=== PATIENT | female | born 1965 | race Caucasian/White ===

== ENCOUNTER 2024-06-01 08:45 | Outpatient (AMB) | payer OTHER, SELFPAY ==
--- OUTSIDE RECORDS SUMMARY | 2024-06-01 09:12 | XMS_ITS | Continuity of Care Document ---
Author Organization [facility] Address [address] [place] [address] [address] [place] [address] Phone Care Team Providers Care Chart Writer Name Role Phone Izaiah MONTGOMERY, FERNANDO, Emre MADISON Unavailable U navailable Allergies, Adverse Reactions, Alerts Substance Reaction Status Criticality No Known Allergies Active No Inform ation Procedures Procedure Date Duplex Scan-extrem Veins; Uni/ CT & MA D Endovenous Laser, 1st Vein- CT & MA Endovenous Rf, 1st Vein- CT & MA 2023 Ultrason Guidan Needle Bx-rad- CT & MA D Inj Sclerosing Solution; Sngl- CT & MA D Offic/outpt E&m Estab 5 Min Trial- Telem edicine CT & MA Offic Cons New/estab Mod-hi 60- CT & MA Duplex Scan-extrem Veins; Uni/ CT & MA A Advance Directives Directive Yes / No Effective Date File Name No Information Encounters Encounter Description Practice Location Reason(s) For Visit Diagnoses Date Provider Providers Copied on Encounter [facility], [address] [place] [address] [address], [place], [id number], [place] tel:[phone] [facility] Encounter for follow-up examination after completed treatment for conditions other than malignant neoplasmPain in left leg Izaiah MONTGOMERY, FERNANDO, GRICELDA Andrea. [address] [facility] [address], [place], [place], [id number] , [place]. tel:[phone] Referring Provider: Emre Bliss MD, RVT, GRICELDA, [address] [place] [address], [facility] [place] [place], [address] . tel:[phone] [facility], [address] [place] [address] Dr Burt [address]Jose [place], [id number], [place] tel:[phone] [facility] [place] [facility] Varicose veins of left lower extremity with other complications 4 Izaiah MONTGOMERY RVT, GRICELDA Andrea. [address] [place] [address], [address], [facility] [place], [id number] , [place]. tel:[phone] [facility], [address] [place] [address] Dr [facility] [address] [place], [id number], [place] tel:[phone] [facility] [place] [facility] Chronic venous hypertension (idiopathic) with inflammation of left lower extremity 4 Izaiah MONTGOMERY RVT, GRICELDA Andrea. [address] [place] [address], [place] [address], [facility] [place], [id number] , [place]. tel:[phone] Referring Provider: Emre Bliss MD, RVT, GRICELDA, [address] [place] [address], [place], [address] . tel:[phone] [facility], [address] [place] [address] Dr Burt [address]Jose [place], [id number], [place] tel:[phone] [facility] [place] [facility] No Information 4 Izaiah MONTGOMERY RVT, GRICELDA Andrea. [address] [place] [address], Suite [facility], [facility] [place] [place], [id number] , [place]. tel:[phone] Offic/outpt E&m Estab 5 Min Trial- Telemedicine CT & [place] [facility], [address] [place] [address] Dr Burt [address]Jose [place], [id number], [place] tel:[phone] [facility] [place] [facility] Chronic venous hypertension (idiopathic) with other complications of left lower extremityCramp and spasm 4 Izaiah MONTGOMERY RVT, RPVI Robert. [facility], [address], [facility], [place], [id number] , [place]. tel:[phone] Offic Cons New/estab Mod-hi 60- CT & [place] [facility], [address] [place] [address] [facility] [address], [place], [id number], [place] tel:[phone] CVR - [facility] Chronic venous hypertension (idiopathic) with other complications of bilateral lower extremity 4 Izaiah MONTGOMERY RVT, RPVI Robert. [address] [facility], [address], [facility] [place], [id number] , [place]. tel:[phone] [facility], [address] [place] [address] [facility] [address], [place], [id number], [place] tel:[phone] CVR - [facility] Chronic venous hypertension (idiopathic) with other complications of left lower extremity 4 Izaiah MONTGOMERY RVT, RPVI Robert. [address] [place] [address], [facility] [place], [id number] , [place]. tel:[phone] Referring Provider: Emre Bliss MD, RVT, RPVI, [address] [place] [address], [place], [address] . tel:[phone] Family History Family Member Type Diagnosis Age At Onset No Information Payers Payer name Insurance type Covered republican ID [facility]() [facility] [id number] Social History Type Description Quantity Date Captured Comments Sex Female Smoking Status No Information Chief Complaint And Reason For Visit No Information Reason For Referral Reason For Referral No Information Plan Of Treatment Date Type Action Status Goal Diet education completed Referral Ordered: Weight management: Referral to physician timeframe: 3 Months (related to Body mass index (BMI) 40.0-44.9, adult) ordered Appointment Ashley Bates BOOKED Appointment Ashley Bates BOOKED History Of Present Illness Encounter Date Complaint History Of Prese nt Illness No Information Functional Status Date Functional Assessmen t No Information Instructions Date Instruction Additional Infor mation Pre and post instruc tions reviewed and provided Related to Chronic venous hypertension (idiopathic) with other complications of left lower extremity Patient education booklet given Related to Chronic venous hypertension (idiopathic) with other complications of left lower extremity Lifestyle education Related to B dinh mass index (BMI) 40.0-44.9, adult Giving Encouragement to exercise Related to Body mass index (BMI) 40.0-44.9, adult Pre and post instruc tions reviewed and provided Related to Chronic venous hypertension (idiopathic) with other complications of bilateral lower extremity Patient education booklet given Related to Chronic venous hypertension (idiopathic) with other complications of bilateral lower extremity Diet education Related to Body mass index (BMI) 40.0-44.9, adult Assessments Type Assessment Date No Information Patient Care Teams Name Effective Dates (start - stop) Status Members No Information
--- NOTE | 2024-06-01 10:21 | A.OFFVIS_ITS ---
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*: Details: Start time: 10.10am, End time: 11.10am ?I spent 55 minutes speaking with the patient on the phone plus an additional 5 minutes reviewing and updating records for a total of 60 minutes HPI Comments Details: Previous weight loss efforts: self diets Wakes up: 7am, Sleeps: 11pm Breakfast: 8am (2 eggs) Lunch: milk (1 cup) 1pm (vegetables and fruits) Dinner: 4pm (pasta, salad, rice) Snacks: 10am (bar), 3pm (fruit) Exercise: none Fluids: Coffee (1 cup/day), tea: none, soda: diet Sprite, juice: none, ETOH: none PFSH Medical History (Updated 06/01/24 @ 10:31 by Wyatt Reynoso MD) DJD (degenerative joint disease) Hyperlipidemia GERD (gastroesophageal reflux disease) Morbid obesity Surgical History (Updated 05/19/24 @ 12:00 by Radha Stoddard CMA) Hx of colonoscopy Hx of bladder endoscopy Hx of hysterectomy Hx of breast reduction, elective Family History (Updated 05/19/24 @ 12:01 by Radha Stoddard CMA) Mother Asthma Father Diabetes Daughter No problems noted. Daughter No problems noted. Daughter Diabetes Son No problems noted. Son No problems noted. Social History (Updated 05/19/24 @ 12:01 by Radha Stoddard CMA) Alcohol intake: never Patient Tobacco Use Status: Never used Tobacco Telehealth Telehealth Telehealth Platform: Telephone Location of provider rendering services: practice address Location of patient: address on file Patient Identification confirmed using: Name, : Yes Telehealth method: voice only Patient verbally consented to treatment: Yes Patient verbally consented to billing insurance company: Yes Patient informed of any privacy concerns related to visit: Yes Minutes spent on Phone/Video with Pt.: 60 Assessment & Plan Assessment & Plan (1) Morbid obesity: Code(s): E66.01 - Morbid (severe) obesity due to excess calories Category: Medical Plan: 1.? Plan for lap sleeve gastrectomy. If diaphragmatic or ventral hernias are present at time of surgery, these will be repaired laparoscopically as well. I emphasized the importance of close follow-up, adherence to instructions and good communication. The surgery does not replace the need to change your lifestlyle which is the cause of the obesity problem. The surgery provides the motivation to try again to change your lifestyle, it reduces the appetite and make the transition to a better lifestyle easier and doubles the amount of weight you would lose compared to doing the lifestyle change without the s urgery. You will need to be on a liquid diet with protein shakes for 2 weeks before surgery to maximize weight loss and boost your nutritional status to recover better from surgery and also for the first two weeks after surgery to let the stomach heal before we introduce other foods. After the first 2 weeks we will introduce protein bars and soft foods like scrambled eggs, cottage cheese and yogurt and after the 6th week will introduce meat, fish and cooked vegetables in small amounts. Over time you should be able to eat everything in small amounts. Side effects like nausea, vomiting, heartburn or abdominal pain are not common in the practice unless you are not following in the practice. This operation requires lifetime commitment to following in our practice and communication with me. You will much less weight and experience side effects if you don?t communicate or not following in the practice. Complications are rare and in our practice is about 1/10 of the national average. However, you can develop bleeding that may require transfusion (hasn?t happened for year in the practice), you may from complications (we did not have any deaths in the practice) and infections. Infections are usually a result of breakdown in communication or not understanding or following directions correctly. They are difficult to treat, they can happen during the first 6 weeks, they may require to be in the hospital for weeks or even months, not being able to eat by mouth and you may have drains and surgeries to try and correct the issue. Other risks and complications include possible conversion to an open procedure, leaks, small bowel obstruction, blood clots, cardiac, or pulmonary complications, as fci complications such as ulcers, insufficient weight loss and vitamin deficiencies. 2. Nutritional counseling. Start with 2 CELEBRATE REBUILD protein (buy at [facility]) shakes (HALF scoop EACH in 8oz low fat unsweetened almond milk each) at 8am-10am and 11am-1pm, 1 protein bar (CELEBRATE protein bars, buy at [facility] [employer] shop) at 2pm-4pm, dinner at 5pm (8 forks of protein and 8 forks of salad/vegetables) AND one more protein bar after dinner at 7pm-9pm. She may have an additional half bar if hungry at 10pm-11pm So you do 2 protein shakes, 2 to 2.5 protein bars and one meal per day. Meal to include lean meat (beef, fish, pork, turkey, chicken), or irish yogurt, or egg whites, or beans with a salad with olive oil and fruits (berries, pears, apples, kiwi). Avoid salt, breads, potatoes, rice, pasta, desserts. 3. Each shake would be drunk slowly, like coffee in a period of 2 hours. 4. Cut each bar in 4 pieces and eat each piece in 30min ?to make each bar last 2 hours. 5. I emphasized the importance of measuring accurately the food portion and measure it when serving the food in plate 6. The meal portions include 8 full-size forks of meat and 8 full-size forks of salad. You always eat the meat portion but you can replace up to 4 forks for salad/vegetables with rice, potatoes or pasta, or a fruit ?if you like. The less you do it the better weight loss will be. 7. One full-size fork is what it can be scooped on the fork without falling aside and not what can be bit with the fork. Use regular forks like those you find in a typical restaurant. 8.? Please buy the body composition scale we discussed and send me weight measu rements as soon as possible and then once a week. Always include your diet and exercise plan. 9. Start walking outside daily, tracking calories with a goal of 300 calories per day, daily. Goal is to burn 2000 calories per week on exercise, which means either 300 calories daily, or 400 calories 5 days per week, or 500 calories 4 days per week, or 650 calories 3 days per week. 10. The best choice would be to purchase a stationary bike at home that can track calories. Let me know if you do so I can give you an exercise plan. 11. Goal is to lose at least 1.5-2lbs per week 12. Goal to lose 10% of your weight before surgery, which is about 21lbs. Ultimate weight goal: 186lbs before surgery 13. Please follow the diet plan exactly without any change. If you don't like something about the plan or you feel hungry you need to communicate with me so I can help you revise the plan. You should not change the plan yourself. 14. To be scheduled for EGD on 06/11/2024 due to the history of GERD. The possibility of biopsies was discussed. Patient needs to avoid use of NSAIDs and aspirin for 1 week prior to EGD. You must be on liquids only the day before your endoscopy. Risks of perforation and bleeding was discussed with the patient. This will be an outpatient procedure with IV sedation.
== END 2024-06-01 11:20 | disposition home or self-care (01) ==
LOC: HO.HBS 08:45
PROVIDERS: Visit Provider Surgery
DX: E66.813 Obesity, class 3 (principal); Z68.41 Body mass index [BMI] 40.0-44.9, adult
CPT/HCPCS: 98011

== ENCOUNTER 2024-06-03 11:20 | Outpatient (AMB) | payer OTHER, SELFPAY ==
--- NOTE | 2024-06-03 11:00 | A.OFFWM_ITS ---
Intake Intake Visit Reasons: TV Intake Allergies adhesive tape [ADHESIVE TAPE] Allergy (Intermediate, Verified 06/01/24 10:22) SKIN BLISTERS Pt states no food/medication a Allergy (Mild, Uncoded 06/01/24 10:22) rash PFSH Medical History (Updated 06/01/24 @ 10:31 by Wyatt Reynoso MD) DJD (degenerative joint disease) Hyperlipidemia GERD (gastroesophageal reflux disease) Morbid obesity Surgical History (Updated 05/19/24 @ 12:00 by Radha Stoddard CMA) Hx of colonoscopy Hx of bladder endoscopy Hx of hysterectomy Hx of breast reduction, elective Family History (Updated 05/19/24 @ 12:01 by Radha Stoddard CMA) Mother Asthma Father Diabetes Daughter No problems noted. Daughter No problems noted. Daughter Diabetes Son No problems noted. Son No problems noted. Social History (Updated 05/19/24 @ 12:01 by Radha Stoddard CMA) Alcohol intake: never Patient Tobacco Use Status: Never used Tobacco Behavioral Health Assessment Weight Management Therapy Therapy Notes Details PT is a 58 years old Female, who presents for inital visit to complete psychological assessment as part of surgical weight loss program. PT reports she told her PCP about her interest in weight loss surgery due to how her weight is impacting her health specially her back. She hopes that by losing weight she will feel better in general. Presenting Concerns Referral Source P-PROVIDER. PT has initial visit with Dr Burrell on Saturday06/01/2024 Reason for referral Completion of behavioral health assessment as part of process for weight-loss surgery. Precipitating Event Obesity. Living Situation Current Living Situation Rent At risk of losing current housing? No Satisfied with current living situation? Yes Comments PT lives with her 32 y/o adult son. Food/Weight/Diet Expectations of change The initial goal is to lose 10% of your weight before surgery, about 21 lbs. Ultimate weight goal: 186lbs before surgery PT initial weight as of 05/19/2024: 207 Lbs. She had an initial visit with Dr Burrell on 06/01/2024 and was 207 Lbs that day too. She bought her scale already and was given a meal plan, however she has not started yet as she gets paid on Saturday. Instructions given by provider: meal plan: 2 protein shakes, 2 to 2.5 protein bars, and one meal per day. Exercise plan: Will get a treadmill. not started yet. History/Relationship with food Example of meals before starting the program: Breakfast: Lunch: Dinner: Snacks: Drinks/Liquids: History/Relationship with weight In the last 10 years, the patient's Lowest weight was and highest Social History Family history and relationship PT is 11 years ago. She has 5 adult children and 8 grandkids. Parents are . She has 8 siblings. Parental/Familial contract lead obligations None Developmental history and status None reported Currently WNL. Social support Children, the son who lives with her is starting the process with her, her oldest son had surgery with Dr. Burrell. Her sister is very close and supportive. Community support PCP Confucianist/Spirituality Mu-Ism, attends sikhism 1-3 times a week. Cultural/Ethnic information PT is from [place]. She has been in [place] 11 years ago. PT is [place] Islander-speaking only. Legal Involvement and History Current or historical involvement with the legal system? None reported. Education Highest grade completed HS. Certificate as behavioral technician. Preferred learning style Learn by doing and Visual Currently enrolled in educational program? No Interested in further educational program? 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 ) Wants help to find employment? No Meaningful activities Crafts, sewing, listen to music, elzbieta-related videos or music. Financial Situation Describe current financial situation Occasional struggle (Lost job in March. Looking for a new one) Financial assistance? Food [place] and Other (Insurance. ) Service Service? No Mental Health and Addiction Treatment0 Current/Past substance abuse? No Comments Alcohol: None Cigarettes/Tobacco: None Cannabis/Edibles: None Current/Past addictive behavior concerns? No Psychiatric history PT reports she started to counseling in 2013 after her divorce due to depression, she was for over 30 years and they have been together since age 11. So she had a hard time adjusting to the changes after separation. She continues attending counseling every month for support at [facility] in [place]. Denies any psychiatric treatment for medication management. Denies ever being in crisis or inpatient for mental health. There is no history and/or current concern about SI/SA and self-harm or other harm. Medical and Physical Health Summary Additional Medical History not covered in history None additiona Sexual History concerns None reported Physical exam in the last year? Yes Pain Screening Current pain? Yes Pain in the last few months? Yes Comments Back pain. Daily pain mostly manageable. Medications Is the patient compliant with medications? Yes Does the patient have Rosenthal Guardian in place? Not applicable Does the patient use complimentary health approaches? No Trauma/Abuse History History of trauma? No Assessment & Plan Assessment & Plan (1) Adjustment disorder with depressed mood in remission: Code(s): F43.21 - Adjustment disorder with depressed mood Plan PT will return in 2-3 weeks to continue assessment. New PT pack will be reviewed at next visit as it has not been scanned yet. Next edie: 06/18/2024 at 9am, Phone visit. Telehealth [facility]health [facility] Location of provider rendering services: other Location of patient: address on file Patient Identification confirmed using: Name, : Yes Telehealth method: voice only Patient verbally consented to treatment: Yes Patient verbally consented to billing insurance company: Yes Patient informed of any privacy concerns related to visit: Yes Minutes spent on Phone/Video with Pt.: 55 Coding Level of Care Code New Pt Tele Psy Diag Zaida ([id number]) Patient Type New Diagnoses Adjustment disorder with depressed mood in remission F43.21 Time Spent (min) 55
--- OUTSIDE RECORDS SUMMARY | 2024-06-03 11:44 | XMS_ITS | Continuity of Care Document ---
Author Organization [facility] Address [address] [place] [address] [address] [place] [address] Phone Care Team Providers Care Political Research Scientist Name Role Phone Izaiah MONTGOMERY, FERNANDO, Emre [...] Providers Copied on Encounter [facility], [address] [place] [address] [address], [place], [id number], [place] tel:[phone] [facility] Encounter for follow-up examination after completed treatment for conditions other than malignant neoplasmPain in left leg Izaiah MONTGOMERY, FERNANDO, GRICELDA Andrea. [address] [facility], [place], [place], [id number] , [place]. tel:[phone] Referring Provider: Emre Bliss MD, RVT, GRICELDA, [address] [place] [address], [facility] [place], [address] . tel:[phone] [facility], [address] [place] [address] Dr Burt 1000Suite 1000Jose [place], [id number], [place] tel:[phone] CVR - [place] Varicose veins of left lower extremity with other complications 4 Izaiah MONTGOMERY RVT, GRICELDA Andrea. [address] [place] [address], [address], [facility] [place], [id number] , [place]. tel:[phone] [facility], [address] [place] [address] Dr Burt [facility] 1000Jose [place], [id number], [place] tel:[phone] [place] Chronic venous hypertension (idiopathic) with inflammation of left lower extremity 4 Izaiah MONTGOMERY RVT, GRICELDA Andrea. [address] [place] [address], [place] [address], [facility] [place], [id number] , [place]. tel:[phone] Referring Provider: Emre Bliss MD, RVT, GRICELDA, [address] [place] [address], [facility] [place], [address] . tel:[phone] [facility], [address] [place] [address] Dr Burt 1000Suite 1000Jose [place], [id number], [place] tel:[phone] [place] No Information 4 Izaiah MONTGOMERY RVT, GRICELDA Andrea. [address] [place] [address], Suite [facility], [facility] [place], [id number] , [place]. tel:[phone] Offic/outpt E&m Estab 5 Min Trial- Telemedicine CT & [place] [facility], [address] [place] [address] Dr Burt 1000Suite 1000Jose [place], [id number], [place] tel:[phone] [place] Chronic venous hypertension (idiopathic) with other complications of left lower extremityCramp and spasm 4 Izaiah MONTGOMERY RVT, RPVI Robert. [facility], [address], [facility], [place], [id number] , [place]. tel:[phone] Offic Cons New/estab Mod-hi 60- CT & [place] [facility], [address] [place] [address] [address], [place], [id number], [place] tel:[phone] CVR - [facility] Chronic venous hypertension (idiopathic) with other complications of bilateral lower extremity 4 Izaiah MONTGOMERY RVT, RPVI Robert. [address] [facility], [address], [facility] [place], [id number] , [place]. tel:[phone] [facility], [address] [place] [address] [address], [place], [id number], [place] tel:[phone] CVR - [facility] Chronic venous hypertension (idiopathic) with other complications of left lower extremity 4 Izaiah MONTGOMERY RVT, RPVI Robert. [address] [place] [address], [facility] [place], [place], [id number] , [place]. tel:[phone] Referring Provider: Emre Bliss MD, RVT, RPVI, [address] [place] [address], [place], [address] . tel:[phone] Family History Family Member Type Diagnosis Age At Onset No Information Payers Payer name Insurance type Covered republican ID [facility]() [facility] [id number] Social History Type Description Quantity Date Captured [...] No Information Instructions Date Instruction Additional Infor cliff Patient education booklet given Related to Chronic venous hypertension (idiopathic) with other complications of left lower extremity Pre and post instruc tions reviewed and provided Related to Chronic venous hypertension (idiopathic) with other complications of left lower extremity Diet education Related to Body mass index (BMI) 40.0-44.9, adult Patient education booklet given Related to Chronic venous hypertension (idiopathic) with other complications of bilateral lower extremity Pre and post instruc tions reviewed and provided Related to Chronic venous hypertension (idiopathic) with other complications of bilateral lower extremity Giving Encouragement to exercise Related to Body mass index (BMI) 40.0-44.9, adult Lifestyle education Related to B dinh mass index (BMI) 40.0-44.9, adult Assessments Type Assessment Date No Information Patient Care Teams Name Effective Dates (start - stop) Status Members No Information
== END 2024-06-03 12:03 | disposition home or self-care (01) ==
LOC: HO.HBST 11:20
PROVIDERS: PCP Student in an Organized Health Care Education/Training Program; Visit Provider Counselor Mental Health
DX: F43.21 Adjustment disorder with depressed mood (principal)
CPT/HCPCS: 90791

== ENCOUNTER → 2024-06-03 11:20 | Outpatient (BNVA) | payer OTHER, SELFPAY | PROVIDERS: PCP Student in an Organized Health Care Education/Training Program; Visit Provider Counselor Mental Health ==

== ENCOUNTER → 2024-06-15 10:13 | Outpatient (BNV) | payer OTHER, SELFPAY | PROVIDERS: PCP Student in an Organized Health Care Education/Training Program; Visit Provider Internal Medicine Cardiovascular Disease | DX: R94.31 Abnormal electrocardiogram [ECG] [EKG] (principal); E66.01 Morbid (severe) obesity due to excess calories | CPT/HCPCS: 93010 ==

== ENCOUNTER → 2024-06-15 10:43 | Outpatient (BNV) | payer OTHER, SELFPAY | PROVIDERS: PCP Student in an Organized Health Care Education/Training Program; Visit Provider Radiology Diagnostic Radiology | DX: E66.01 Morbid (severe) obesity due to excess calories (principal) | CPT/HCPCS: 71046 ==

== ENCOUNTER 2024-06-23 10:57 | Day surgery (SDC) | payer OTHER, SELFPAY ==
--- OUTSIDE RECORDS SUMMARY | 2024-06-04 09:21 | XMS_ITS | Continuity of Care Document ---
Author Organization [facility] Address [address] [place] [address] [address] [place] [address] Phone Care Team Providers Care Product Technology Scientist Name Role Phone Izaiah MONTGOMERY, FERNANDO, [...] Providers Copied on Encounter [facility], [address] [place] [address] [address], [place], [id number], [place] tel:[phone] [facility] Encounter for follow-up examination after completed treatment for conditions other than malignant neoplasmPain in left leg Izaiah MONTGOMERY, FERNANDO, GRICELDA Andrea. [address] [facility], [place], [place], [id number] , [place]. tel:[phone] Referring Provider: Emre Bliss MD, RVT, GRICELDA, [address] [place] [address], [facility] [place], [address] . 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 [address] [place] [address], [address], [facility] [place], [id number] , [place]. tel:[phone] [facility], [address] [place] [address] Dr Burt 1000[facility] 1000Jose [place], [id number], [place] tel:[phone] [place] Chronic venous hypertension (idiopathic) with inflammation of left lower extremity 4 Izaiah MONTGOMERY RVT, GRICELDA Andrea. [address] [place] [address], [place] [address], [facility] [place], [id number] , [place]. tel:[phone] Referring Provider: Emre Bliss MD, RVT, GRICELDA, [address] [place] [address], [facility] [place], [address] . tel:[phone] [facility], [address] [place] [address] Dr Burt 1000Suite 1000Jose [place], [id number], [place] tel:[phone] [place] No Information 4 Izaiah MONTGOMERY RVT, GRICELDA Andrea. [address] [place] [address], Suite [facility], [facility] [place], [id number] , [place]. tel:[phone] Offic/outpt E&m Estab 5 Min Trial- Telemedicine CT & [place] [facility] [facility], [address] [place] [address] Dr Burt 1000Suite 1000Jose [place], [id number], [place] tel:[phone] [place] Chronic venous hypertension (idiopathic) with other complications of left lower extremityCramp and spasm 4 Izaiah MONTGOMERY RVT, RPVI Robert. [facility], [address], [facility], [place], [id number] , [place]. tel:[phone] Offic Cons New/estab Mod-hi 60- CT & [place] [facility], [address] [place] [address] [facility] 1000[address], [place], [id number], [place] tel:[phone] CVR - [facility] Chronic venous hypertension (idiopathic) with other complications of bilateral lower extremity 4 Izaiah MONTGOMERY RVT, RPVI Robert. [address] [facility], [address], [facility] , [place], [id number] , [place]. tel:[phone] [facility], [address] [place] [address] [facility] 1000[address], [place], [id number], [place] tel:[phone] CVR - [facility] Chronic venous hypertension (idiopathic) with other complications of left lower extremity 4 Izaiah MONTGOMERY RVT, RPVI Robert. [address] [place] [address], [facility] [place], [id number] , [place]. tel:[phone] Referring Provider: Emre Bliss MD, RVT, RPVI, [address] [place] [address], [place], [address] . tel:[phone] Family History Family Member Type Diagnosis Age At Onset No Information Payers Payer name Insurance type Covered democrat ID [facility]() [facility] [id number] Social History Type Description Quantity Date Captured [...]
--- NOTE | 2024-06-19 14:13 | P.CONAN_ITS ---
Documented by User: Yary Johnson NP 06/19/24 14:13 HPI - Anesthesia Eval Consult details Narrative: 59yo F for Upper Endoscopy PMFSH Active Problems Active Problems: All Active Problems Abnormal EKG (Acute) Vitamin D deficiency (Acute) DJD (degenerative joint disease) (Acute) Hyperlipidemia (Acute) GERD (gastroesophageal reflux disease) (Acute) Morbid obesity (Acute) Past Medical History Medical History DJD (degenerative joint disease) Hyperlipidemia GERD (gastroesophageal reflux disease) Morbid obesity Family History Family History Mother Asthma Father Diabetes Daughter No problems noted. Daughter No problems noted. Daughter Diabetes Son No problems noted. Son No problems noted. Surgical History Surgical History Hx of colonoscopy Hx of bladder endoscopy Hx of hysterectomy Hx of breast reduction, elective Social History Social History Are you a primary family day care worker to a significant other at home: No Do you presently have visiting nurse or other home services: No Alcohol intake: never Patient Tobacco Use Status: Never used Tobacco Use of substances other than those prescribed or required for medical reasons: No Have you been hit, kicked, punched, or otherwise hurt by someone within the past year? If so, by whom?: No Are you DNR?: No Advance Directives: No Advance Directives Information Provided: Yes Advance Directives on File: No Recently lost weight without trying: No Nutrition Risks: No Nutritional Risk Meds Allergies Allergy/AdvReac Type Severity Reaction Status Date / Time adhesive tape [ADHESIVE TAPE] Allergy Intermediate SKIN Verified 06/23/24 13:15 BLISTERS Pt states no food/medication Allergy Mild rash Uncoded 06/01/24 10:22 a Home Medications ?Medication ?Instructions ?Recorded ?Confirmed ?Last Taken ?Type atorvastatin 40 mg tablet 40 mg PO DAILY 05/28/24 06/23/24 Unknown History famotidine 20 mg tablet 20 mg PO DAILY 05/28/24 06/23/24 Unknown History meloxicam 15 mg tablet 15 mg PO DAILY 05/28/24 06/23/24 Unknown History multivitamin 1 tab PO DAILY 05/28/24 06/23/24 Unknown History Assessment and Plan Assessment Anesthesia Assessment: Chart Reviewed Documented by User: Gabby Akins MD 06/23/24 14:03 PMFSH Past Medical History Medical History DJD (degenerative joint disease) Hyperlipidemia GERD (gastroesophageal reflux disease) Morbid obesity Family History Family History Mother Asthma Father Diabetes Daughter No problems noted. Daughter No problems noted. Daughter Diabetes Son No problems noted. Son No problems noted. Surgical History Surgical History Hx of colonoscopy Hx of bladder endoscopy Hx of hysterectomy Hx of breast reduction, elective History of Problems with Anesthesia: No Social History Social History Are you a primary family day care worker to a significant other at home: No Do you presently have visiting nurse or other home services: No Alcohol intake: never Patient Tobacco Use Status: Never used Tobacco Use of substances other than those prescribed or required for medical reasons: No Have you been hit, kicked, punched, or otherwise hurt by someone within the past year? If so, by whom?: No Are you DNR?: No Advance Directives: No Advance Directives Information Provided: Yes Advance Directives on File: No Recently lost weight without trying: No Nutrition Risks: No Nutritional Risk Meds Allergies Allergy/AdvReac Type Severity Reaction Status Date / Time adhesive tape [ADHESIVE TAPE] Allergy Intermediate SKIN Verified 06/23/24 13:15 BLISTERS Pt states no food/medication Allergy Mild rash Uncoded 06/01/24 10:22 a Home Medications ?Medication ?Instructions ?Recorded ?Confirmed ?Last Taken ?Type atorvastatin 40 mg tablet 40 mg PO DAILY 05/28/24 06/23/24 Unknown History famotidine 20 mg tablet 20 mg PO DAILY 05/28/24 06/23/24 Unknown History meloxicam 15 mg tablet 15 mg PO DAILY 05/28/24 06/23/24 Unknown History multivitamin 1 tab PO DAILY 05/28/24 06/23/24 Unknown History Exam Airway Mallampati Class: III TM Dist: >3cm Neck ROM: Full Loose/Missing/Broken Teeth: No Heart: RRR Lungs: CTA Assessment and Plan Assessment Anesthesia Assessment: Anesthesia Plan Discussed Final Anesthetic Review History of Problems with Anesthesia: No NPO: Yes ASA Class: III and Emergency Final Preanesthetic Review: Meds/Allgs Chart Reviewed, Consent Obtained/Reviewed and Anes Risks/Benef Reviewed Patient Risk: Intermediate Procedure Risk: Intermediate Anesthetic Plan Anesthetic Plan: MAC: Disposition: Standard PACU
--- OUTSIDE RECORDS SUMMARY | 2024-06-23 12:12 | XMS_ITS | Continuity of Care Document ---
Author Organization [facility] Address [address] [place] [address] [address] [place] [address] Phone Care Team Providers Care Setter Automatic Spinning Lathe Name Role Phone Izaiah MONTGOMERY, FERNANDO, Emre [...] Providers Copied on Encounter [facility], [address] [place] [address] [address], [place], [id number], [place] tel:[phone] [facility] Encounter for follow-up examination after completed treatment for conditions other than malignant neoplasmPain in left leg Izaiah MONTGOMERY, FERNANDO, GRICELDA Andrea. [address] [facility] [address], [place], [place], [id number] , [place]. tel:[phone] Referring Provider: Emre Bliss MD, RVT, GRICELDA, [address] [place] [address], [facility] [place], [address] . tel:[phone] [place] [facility], [address] [place] [address] Dr Burt 1000Suite 1000Jose [place], [id number], [place] tel:[phone] CV[place] - [place] Varicose veins of left lower extremity with other complications 4 Izaiah MONTGOMERY RVT, GRICELDA Andrea. [address] [place] [address], [address], [facility] [place], [id number] , [place]. tel:[phone] [facility], [address] [place] [address] Dr Burt 1000[facility] 1000Jose [place], [id number], [place] tel:[phone] CVR - [place] Chronic venous hypertension (idiopathic) with inflammation of left lower extremity 4 Izaiah MONTGOMERY RVT, GRICELDA Andrea. [address] [place] [address], [place] [address], [facility] [place], [id number] , [place]. tel:[phone] Referring Provider: Emre Bliss MD, RVT, GRICELDA, [address] [place] [address], [facility] [place], [address] . tel:[phone] [facility], [address] [place] [address] Dr Burt 1000Suite 1000Jose [place], [id number], [place] tel:[phone] CVR - [place] No Information 4 Izaiah MONTGOMERY RVT, GRICELDA Andrea. [address] [place] [address], Suite [facility], [facility] [place], [id number] , [place]. tel:[phone] Offic/outpt E&m Estab 5 Min Trial- Telemedicine CT & [place] [facility] [facility], [address] [place] [address] Dr Burt 1000Suite 1000Jose [place], [id number], [place] tel:[phone] CV[place] - [place] Chronic venous hypertension (idiopathic) with other complications of left lower extremityCramp and spasm 4 Izaiah MONTGOMERY RVT, RPVI Robert. [address] [place] [address], [place], [place], [id number] , [place]. tel:[phone] Offic Cons New/estab Mod-hi 60- CT & [place] [facility], [address] [place] [address] Dr Burt 1000[address] 1000, [place], [id number], [place] tel:[phone] CVR - [facility] Chronic venous hypertension (idiopathic) with other complications of bilateral lower extremity 4 Izaiah MONTGOMERY RVT, RPVI Robert. [address] [place] [address], [place], [place], [id number] , [place]. tel:[phone] [facility] [facility], [address] [place] [address] [facility] [address] 1000, [place], [id number], [place] tel:[phone] CVR - [facility] Chronic venous hypertension (idiopathic) with other complications of left lower extremity 4 Izaiah MONTGOMERY RVT, RPVI Robert. [address] [place] [address], [place], [place], [id number] , [place]. tel:[phone] Referring Provider: Emre Bliss MD, RVT, RPVI, [address] [place] [address], [place], [address] . tel:[phone] Family History Family Member Type Diagnosis Age At Onset No Information Payers Payer name Insurance type Covered alliance party ID Authoriza tion(s) No Information Social History Type Description Quantity Date Captured Comments Sex Female Smoking Status No Information Chief Complaint And Reason For Visit No Information Reason For Referral Reason For Referral No Information Plan Of Treatment Date Type Action Status Goal Diet education completed Referral Ordered: Weight management: Referral to physician timeframe: 3 Months (related to Body mass index (BMI) 40.0-44.9, adult) ordered History Of Present Illness Encounter Date Complaint History Of Prese nt Illness No Information Functional Status Date Functional Assessmen t No Information Instructions Date Instruction Additional Infor mation Patient education booklet given Related to Chronic [...]
[2024-06-23 13:32] VITALS: BP 136/71; PULSE 73; RESP 14; TEMP 36.4; O2SAT 98; BMI 39.4; BMI 39.5
[2024-06-23] MEDS: Lactated Ringers 1,000 ML 100 ML IVCONT (13:37)
--- NOTE | 2024-06-23 14:21 | MHC.SHP ---
Pre-Procedural Eval Section A - 24 Hr Update-Section A only Date of Service: 06/23/24 The patient is an INPATIENT: No The patient has been examined within 24 hours of the surgical procedure. The History & Physical has been completed within 30 days and I have reviewed it.: Yes Section B - Complete if H&P > 30 days Chief Complaint: Morbid (severe) obesity due to excess calories Details of Present Illness: GERD Relevant Family History (Specify if Yes): No Relevant Social History: None Present Medications: None Medical History: No relevant PMH History of Previous Operations: No relevant previous surgery Allergies: Allergies Allergy/AdvReac Type Severity Reaction Status Date / Time adhesive tape [ADHESIVE TAPE] Allergy Intermediate SKIN Verified 06/23/24 13:15 BLISTERS Pt states no food/medication Allergy Mild rash Uncoded 06/01/24 10:22 a Review of Systems Sugical H&P ROS: Negative: Constitution, Cardiovascular, Respiratory, Neurological, Psychiatric, Hem-Onc, Allergic/Immunologic, Gastrointestinal, Genitourinary, Musculoskeletal, Integumentary, Endocrine and Eyes/Ears/Nose/Throat Exam Surgical H&P Exam: Normal: HEENT, Normal: Heart, Normal: Lungs, Normal: Extremities, Normal: Abdomen, Normal: Skin and Normal: Neurological Plan Diagnosis/Plan: Unchanged (EGD to assess etiology of GERD. Risks of bleeding and perforation were discussed with the patient and she is in agreement with the plan.) I have reviewed the history and physical and performed a pertinent physical examination on my patient. No changes have occurred unless specified. Time Spent With Patient Time: Total time managing care of this patient today ____ minutes.
--- NOTE | 2024-06-23 14:24 | P.BOP_ITS ---
Brief Operative Note Date of Service: 06/23/24 Pre-op diagnosis: GERD Post-op diagnosis: same Procedure: PROCEDURE DATE: 06/23/2024 PREOPERATIVE DIAGNOSIS: GERD POSTOPERATIVE DIAGNOSIS: ?Same as above. 1) normal endoscopy PROCEDURE: Muzbuthh-nnvgul-drfhdlgaaxxk with biopsies Surgeon: Carlos Reynoso M.D.. Ph.D. Associate Professor Of Radiology: None ? Anesthesia: IV sedation Estimated blood loss: ?Minimal FINDINGS AND PROCEDURE: ? OPERATIVE INDICATIONS: ?The patient is a 59 year old female known to me who is interested in bariatric surgery. The patient has GERD. Based on this information I recommended an upper endoscopy to evaluate the patient's symptoms. Risks and complications of the surgery were discussed with the patient in advance particularly the possibility of perforation or bleeding that may require surgica l intervention. The patient understood the risks and was in agreement with the plan. ? PROCEDURE: After informed consent was obtained by the patient, the patient was ?transferred to the Operating Room and was placed in the supine position.? After successful induction of IV sedation, a mouth block was inserted and the patient was placed in the left lateral decubitus position. An upper endoscopy was performed next, the oropharynx and esophagus appeared within the normal limits. There was no hiatal hernia. The z-line was smooth. Two biopsies were obtained from the distal esophagus 2-3 cm proximal to the GE junction and two additional biopsies from the GE junction. The stomach was entered and it appeared to be of normal size. There was no gastritis. There was no stricture or ulcer. A biopsy was obtained from the gastric fundus and antrum. No significant bleeding was noted from any of the biopsy sites. Retroflexion of the scope confirmed a normal GE junction anatomy. The scope was then advanced into the duodenum which appeared to be normal as well. At that point the duodenum ?and the stomach were decompressed and the scope was withdrawn from the patient's mouth. The patient extubated and was transferred in stable condition to the Recovery Room for further care. I was present and performed all steps of the procedure. There were no residents to assist with this case. Ken Reynoso M.D., Ph.D. Surgeon: Wyatt Reynoso MD Anesthesia: MAC Was an Associate Professor Of Radiology used for this Procedure?: No Estimated blood loss (mL): 0 IV fluids (mL): 400 Urine output (mL): 0 (No Villeda to record output) Pathology: other (1) antrum x1, 2) fundus x1, 3) GE junction x2, 4) distal esophagus x2) Condition: stable Disposition: PACU
[2024-06-23 14:44] VITALS: BP 111/56; PULSE 77; RESP 16; TEMP 36.8; O2SAT 100
[2024-06-23 14:59] VITALS: BP 126/69; PULSE 82; RESP 18; TEMP 36.2; O2SAT 94
== END 2024-06-23 15:25 | disposition home or self-care (01) ==
PROVIDERS: PCP Student in an Organized Health Care Education/Training Program; Visit Provider Surgery
PROC: 0DJ08ZZ Inspection of Upper Intestinal Tract, Via Natural or Artificial Opening Endoscopic (ICD-10-PCS; CPT 43235; principal; 2024-06-23 14:20)
DX: K21.9 Gastro-esophageal reflux disease without esophagitis (principal); E66.01 Morbid (severe) obesity due to excess calories; Z68.41 Body mass index [BMI] 40.0-44.9, adult; E78.5 Hyperlipidemia, unspecified; M19.90 Unspecified osteoarthritis, unspecified site; Z79.899 Other long term (current) drug therapy; L23.1 Allergic contact dermatitis due to adhesives; Z98.890 Other specified postprocedural states
CPT/HCPCS: 43239; 88305; 88313; 88342; J2003; J2704

== ENCOUNTER → 2024-06-23 10:57 | Outpatient (BNV) | payer OTHER, SELFPAY | PROVIDERS: PCP Student in an Organized Health Care Education/Training Program; Visit Provider Surgery | DX: K21.9 Gastro-esophageal reflux disease without esophagitis (principal) | CPT/HCPCS: 43239 ==

== ENCOUNTER → 2024-06-24 10:12 | Outpatient (AMB) | payer OTHER, SELFPAY ==
--- NOTE | 2024-06-24 10:00 | MHC.WMTHER ---
Intake Intake Visit Reasons: VIDEO BH Intake Part 2 Allergies adhesive tape [ADHESIVE TAPE] Allergy (Intermediate, Verified 06/23/24 13:15) SKIN BLISTERS Pt states no food/medication a Allergy (Mild, Uncoded 06/01/24 10:22) rash PFSH Medical History DJD (degenerative joint disease) Hyperlipidemia GERD (gastroesophageal reflux disease) Morbid obesity Surgical History Hx of colonoscopy Hx of bladder endoscopy Hx of hysterectomy Hx of breast reduction, elective Family History Mother Asthma Father Diabetes Daughter No problems noted. Daughter No problems noted. Daughter Diabetes Son No problems noted. Son No problems noted. Social History Are you a primary healthcare interpreter to a significant other at home: No Do you presently have visiting nurse or other home services: No Alcohol intake: never Patient Tobacco Use Status: Never used Tobacco Behavioral Health Assessment Weight Management Therapy Therapy Notes Details The patient is a 58-year-old female presenting for an initial Behavioral Health visit to complete a psychological assessment as part of a surgical weight loss program. She informed her Primary Care Physician (PCP) about her interest in weight loss surgery due to the impact of her weight on her health, particularly her back. She hopes that losing weight will generally improve her well-being. She attends monthly counseling sessions, initially sought for support following her divorce, and is now stable, attending for maintenance. She is not on any psychiatric medication, and her PHQ-9 scores indicate no concerns regarding depressive symptoms. The patient denies any history of mental health hospitalization or crises, recent or past safety concerns around suicidal ideation (SI) or suicide attempts (SA), self-harm, or harm to others. There is also no history of substance use. She reported some rare instances of stress eating, but her BES scores suggest a low risk for binge eating behavior. The mental status exam is within normal limits, indicating no impairment in functioning. At this time, the patient is cleared from the behavioral health standpoint and will be seen 2-4 weeks post-operatively (PO) for continued support. Presenting Concerns Referral Source WMP-provider. PT had an initial visit with Dr Burrell on Saturday06/01/2024. Initially refered to this program by her PCP. Reason for referral Completion of behavioral health assessment as part of process for weight-loss surgery. Precipitating Event Obesity. Living Situation Current Living Situation Rent At risk of losing current housing? No Satisfied with current living situation? Yes Comments PT lives with her 32 y/o adult son. Food/Weight/Diet Expectations of change The initial goal is to lose 10% of your weight before surgery, about 21 lbs. Ultimate weight goal: 186lbs before surgery PT initial weight as of 05/19/2024: 207 Lbs. She had an initial visit with Dr Burrell on 06/01/2024 and was 207 Lbs that day too. Most recent weight: 06/24/2024: 202 Lbs. Sending weekly measures on Mondays. -Instructions given by provider: meal plan: 2 protein shakes, 2 to 2.5 protein bars, and one daily meal (Dinner @4pm). Exercise plan: treadmill 3-4 days at week for 30 minutes. History/Relationship with food PT reports her issues are related to not having steady meals and then eating bigger portions by the end of the day. Also, she tends to overeat when she's very stressed, however, this doesn't happen often. However, PT denies the use of food as a reward or to uplift her mood. Family activities are mostly focused on food. Example of meals before starting the program: Breakfast: skip most days and Will have coffee only or 1-3 times a week, 1 egg with bread. Lunch: skip most of the time. Mainly leftovers or something quick like soup with rice. Dinner: boiled verdura, like plantains or malanga, with a salad and any type of fried meat. Snacks: juice, soda, cookies. Drinks/Liquids: 2 cans of soda, 1-2 glasses of apple juice, 2-3 bottles of water. History/Relationship with weight PT reports she was at a healthy weight in childhood. She started with major weight gain after marrying and having children. Before getting and having children around 17 years old she has 115Lbs. In the last 10 years, the patient's Lowest weight was 195 lbs and highest 211 lbs. History/Relationship with dieting Different diets, OTC pills, detox teas, and coffee. Tried each methods for a maximum 3 months, the most she lose was 3Lbs. Binge Eating Do you frequently eat large amounts of food in short periods of time, not feeling physically hungry? No Do you feel out of control when you eat a large amount of food in a short period of time? No Do you eat large amounts of food rapidly and typically alone? No Night Eating Do you wake up at least once during the night to eat? No If you wake up in the night, do you find that it is necessary to eat something in order to fall back asleep? No Do you have little or no appetite in the morning and feel very hungry in the evening, often overeating between dinner and when you go to bed? No Social History Family history and relationship PT is 11 years ago. She has 5 adult children and 8 grandkids. Parents are . She has 8 siblings. Parental/Familial steam power plant operator obligations None Developmental history and status None reported Currently WNL. Social support Children, the son who lives with her is starting the process with her, her oldest son had surgery with Dr. Burrell. Her sister is very close and supportive. Community support PCP Bahai/Spirituality Zoroastrian, attends pentecostal 1-3 times a week. Cultural/Ethnic information PT is from [place]. She has been in [place] 11 years ago. PT is Frisian-speaking only. Legal Involvement and History Current or historical involvement with the legal system? None reported. Education Highest grade completed HS. Certificate as windows laptop technician. Preferred learning style Learn by doing and Visual Currently enrolled in educational program? No Interested in further educational program? 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 ) Wants help to find employment? No Meaningful activities Crafts, sewing, listen to music, elzbieta-related videos or music. Financial Situation Describe current financial situation Occasional struggle (Lost job in March. Looking for a new one) Financial assistance? Food [place] and Other (Insurance. ) Service Service? No Mental Health and Addiction Treatment Current/Past substance abuse? No Comments Alcohol: None Cigarettes/Tobacco: None Cannabis/Edibles: None Current/Past addictive behavior concerns? No Psychiatric history PT reports she started to counseling in 2013 after her divorce due to depression, she was for over 30 years and they have been together since age 11. So she had a hard time adjusting to the changes after separation. She continues attending counseling every month for support at [facility] in [place]. Denies any psychiatric treatment for medication management. Denies ever being in crisis or inpatient for mental health. There is no history and/or current concern about SI/SA and self-harm or other harm. Medical and Physical Health Summary Additional Medical History not covered in history None additiona Sexual History concerns None reported Physical exam in the last year? Yes Pain Screening Current pain? Yes Pain in the last few months? Yes Comments Back pain. Daily pain mostly manageable. Medications Is the patient compliant with medications? Yes Does the patient have Rosenthal Guardian in place? Not applicable Does the patient use complimentary health approaches? No Trauma/Abuse History History of trauma? No Questionnaires PHQ-9 Over the last 2 weeks, how often have you been bothered by any of the following problems? 1. Little interest or pleasure in doing things: several days 2. Feeling down, depressed, or hopeless: not at all 3. Trouble falling or staying asleep, or sleeping too much: not at all 4. Feeling tired or having little energy: several days 5. Poor appetite or overeating: not at all 6. Feeling bad about yourself - or that you are a failure or have let yourself or your family down: not at all 7. Trouble concentrating on things, such as reading the newspaper or watching television: not at all 8. Moving or speaking so slowly that other people could have noticed. Or the opposite - being so fidgety or restless that you have been moving around a lot more than usual: not at all 9. Thoughts that you would be better off or of hurting yourself in some way: not at all Total score: 2 Depression Screening Interpretation: Negative Depression Screening Done: Yes Source: Developed by Drs. Emre Ortega, Anne Marie B.W. Dao Hurtado and colleagues, with an educational michael from [employer]. Binge Eating Scale Group 1 A. I don't feel self-conscious about my wt. or body size when I'm with others. B. I feel concerned about how I look to others, but it normally does not make me fell disappointed with myself C. I do get self-conscious about my appearance and wt. which makes me feel disappointed in myself. D. I feel very self-conscious about my wt. and frequently I feel intense shame and disgust for myself. I try to avoid social contacts because of my self-consciousness. Response Group 1: B Group 2 A. I don't have any difficulty eating slowly in the proper manner. B. Although I seem to gobble down foods, I don't end up feeling stuffed because of eating to much. C. At times, I tend to eat quickly and then, I feel uncomfortably full afterwards. D. I have the habit of bolting down my food, without really chewing it. When this happens I usually feel uncomfortably stuffed because I've eaten to much. Response Group 2: C Group 3 A. I feel capable to control my eating urges when I want to. B. I feel like I have failed to control my eating more than the average person. C. I feel utterly helpless when it comes to feeling in control of my eating urges. D. Because I feel so helpless about controlling my eating I have become very desperate about trying to get control. Response Group 3: B Group 4 A. I don't have the habit of eating when I'm bored. B. I sometimes eat when I'm bored, but often I'm able to get busy and get my mind off food. C. I have a regular habit of eating when I'm bored, but occasionally, I can use some other activity to get my mind off eating. D. I have a strong habit of eating when I'm bored. Nothing seems to help me breath the habit. Response Group 4: B Group 5 A. I'm usually physically hungry when I eat something. B. Occasionally, I eat something on impulse even though I really am not hungry. C. I have the regular habit of eating foods, that I might not really enjoy, to satisfy a hungry feeling even though physically, I don't need the food. D. Although I'm not physically hungry, I get a hungry feeling in my mouth that only seems to be satisfied when I eat a food, like sandwich, that fills my mouth. Sometimes, when I eat the food to satisfy my mouth hunger, I then spit the food out so I won't gain weight. Response Group 5: A Group 6 A. I don't feel any guilt or self-hate after I overeat. B. After I overeat, occasionally I feel guilt or self-hate. C. Almost all the time I experience strong guilt or self-hate after I overeat. Response Group 6: B Group 7 A. I don't lose total control of my eating when dieting even after periods when I overeat. B. Sometimes when I eat a forbidden food on a diet, I feel like I blew it and eat even more. C. Frequently, I have the habit of saying to myself, I've blown it now, why not go all the way, when I overeat on a diet. When that happens I eat more. D. I have a regular habit of starting a strict diets for myself but I break the diets by going on an eating binge. My life seems to be either a feast or famine. Response Group 7: A Group 8 A. I rarely eat so much food that I feel uncomfortably stuffed afterwards. B. Usually about once a month, I each such a quantity of food, I end up feeling very stuffed. C. I have regular periods during the month when I eat large amounts of food, either at mealtime or at snacks. D. I eat so much food that I regularly feel quite uncomfortable after eating and sometimes a bit nauseous. Response Group 8: A Group 9 A. My level of calorie intake does not go up very high or go down very low on a regular basis. B. Sometimes after I overeat, I will try to reduce my caloric intake to almost nothing to compensate for the excess calories I've eaten. C. I have a regular habit of overeating during the night. It seems that my routine is not to be hungry in the morning but overeat in the evening. D. In my adult years, I have had week-long periods where I practically starve myself. This follows periods when I overeat. It seems I live a life of either feast or famine. Response Group 9: A Group 10 A. I usually am able to stop eating when I want to. I know when enough is enough. B. Every so often, I experience a compulsion to eat which I can't seem to control. C. Frequently, I experience strong urges to eat which I seem unable to control, but at other times I can control my eating urges. D. I feel incapable of controlling urges to eat. I have a fear of not being able to stop eating voluntarily. Response Group 10: A Group 11 A. I don't have any problem stopping eating when I feel full. B. I usually can stop eating when I feel full but occasionally overeat leaving me feeling uncomfortably stuffed. C. I have a problem stopping eating once I start and usually I feel uncomfortably stuffed after I eat a meal. D. Because I have a problem not being able to stop eating when I want, I sometimes have to induce vomiting to relieve my stuffed feeling. Response Group 11: A Group 12 A. I seem to eat just as much when I'm with others, Family social gatherings as when I'm by myself. B. Sometimes, when I'm with other persons, I don't eat as much as I want to eat because I'm self-conscious about my eating. C. Frequently, I eat only a small amount of food when others are present, because I'm very embarrassed about my eating. D. I feel so ashamed about overeating that I pick times to overeat when I know no one will see me. I feel like a closet eater. Response Group 12: B Group 13 A. I eat three meals a day with only an occasional between meal snack. B. I eat 3 meals a day, but I also normally snack between meals. C. When I am snacking heavily, I get in the habit of skipping regular meals. D. There are regular periods when I seem to be continually eating, with no planned meals. Response Group 13: A Group 14 A. I don't think much about trying to control unwanted eating urges. B. At least some of the time, I feel my thoughts are pre-occupied with trying to control my eating urges. C. I feel that frequently I spend much time thinking about how much I ate or about trying not to eat anymore. D. It seems to me that most of my waking hours are pre-occupied by thoughts about eating or not eating. I feel like I'm constantly struggling not to eat. Response Group 14: B Group 15 A. I don't think about food a great deal. B. I have strong craving for food but they last only for brief periods of time. C. I have days when I can't seem to think about anything else but food. D. Most of my days seem to be pre-occupied with thoughts about food. I feel like I live to eat. Response Group 15: B Group 16 A. I usually know whether or not I'm physically hungry. I take the right portion of food to satisfy me. B. Occasionally, I feel uncertain about knowing whether or not I'm physically hungry. A these times it's hard to know how much food I should take to satisfy me. C. Even though I might know how many calories I should eat, I don't have any idea what is a normal amount of food for me. Response Group 16: A Binge Eating Score: 9 Score less than 17 Minimal Risk Score between 18-26 Moderate Risk Score between 27-46 High Risk Assessment & Plan Assessment & Plan (1) Adjustment disorder with depressed mood in remission: Code(s): F43.21 - Adjustment disorder with depressed mood Plan The patient is cleared from the behavioral health standpoint and will be scheduled for a follow-up visit 2-4 weeks post-operatively for continued support. She has been encouraged to join the [facility] Facebook support group and informed about available resources. Additionally, she has been made aware that behavioral health support is accessible to her at any time, both pre- and post-operatively. Next appointment: 2-4 weeks post-op. Telehealth Telehealth [facility] Location of provider rendering services: other Location of patient: address on file Patient Identification confirmed using: Name, : Yes Telehealth method: video Patient verbally consented to treatment: Yes Patient verbally consented to billing insurance company: Yes Patient informed of any privacy concerns related to visit: Yes Minutes spent on Phone/Video with Pt.: 55 Coding Level of Care Code Established Pt Tele Psytx >53 mins ([id number]) Patient Type Established Diagnoses Adjustment disorder with depressed mood in remission F43.21 Time Spent (min) 55
== END ==
PROVIDERS: PCP Student in an Organized Health Care Education/Training Program; Visit Provider Counselor Mental Health
DX: F43.21 Adjustment disorder with depressed mood (principal)
CPT/HCPCS: 90837

== ENCOUNTER → 2024-06-24 10:54 | Outpatient (REF) | payer OTHER, SELFPAY ==
--- NOTE | 2024-06-24 10:59 | CA_ITS ---
Transthoracic Echocardiogram Patient (Last, First, Middle): Ashley Bates, Gender: Female Date of : 1965 Age: 59 Procedure Date: 06/24/2024 Procedure Type: Transthoracic Echocardiogram Location: OP Height: 152.4 cm Weight: 91.63 kg BSA: 1.87 m2 Heart Rate: bpm BP: 130 / 80 mmHg Client Representative: Referring MD: Wyatt Reynoso MD Symptoms: R94.31 - Abnormal electrocardiogram [ECG] [EKG] Study Quality: Good ECG Rhythm: Sinus Conclusions: - The left ventricular systolic function is normal. The calculated ejection fraction is 62% by biplane method. - There is mild to moderate tricuspid valve regurgitation. Findings Left Ventricle Normal left ventricular cavity size. There is mildly increased left ventricular wall thickness. The left ventricular systolic function is normal. The calculated ejection fraction is 62% by biplane method. There is no evidence of regional wall motion abnormalities. Diastolic function is normal for age. Right Ventricle Normal right ventricular cavity size and systolic function. Atria Both atria are normal in size. Aortic Valve The aortic valve structure and function is likely normal. There is no aortic valve stenosis. There is no aortic valve regurgitation. Mitral Valve The mitral valve appears normal. There is no mitral valve regurgitation. There is no mitral valve stenosis. Pulmonic Valve The pulmonic valve is likely normal. Tricuspid Valve There is mild to moderate tricuspid valve regurgitation. There is no evidence of pulmonary hypertension. Great Vessels The asc aorta is normal in size. Venous The inferior vena cava is normal in size and collapses greater than 50% with inspiration. Pericardium/Pleural There is no evidence of pericardial effusion. Prior Study Comparison No significant change compared to prior study dated: 01/16/2017. Measurements 2D Linear Measurements IVSd: 1.09 0.6-0.9/0.6-1.0 cm LVIDd: 3.44 3.9-5.3/4.2-5.9 cm LVIDd Index: 1.84 2.4-3.2/2.2-3.1 cm/m2 LVIDs: 2.27 2.0-3.6 cm LVPWd: 1.03 0.7-1.1 cm Ao Root: 2.40 2.1-3.5 cm LA Diam: 3.20 2.7-3.8/3.0-4.0 cm LAIDs Index: 1.71 1.5-2.3 cm/m2 LV Mass: 136.42 67-162/88-224 g LV Mass Index: 72.95 43-95/49-115 g/m2 LVOT Diam: 2.00 3.0+(-)1.3 cm 2D Systolic Function EF 4C: 67.80 >55% EF 2C: 57.10 >55% EF BiP: 61.90 >55% Mitral Valve MV Pk E: 0.58 MV PK A: 0.69 MV Decel Time: 211.00 E/A: 0.80 E'Lateral: 12.30 E'Medial: 9.36 E/E' Med: 6.10 E/E' Lat: 4.70 PHT: 62.00 MVA PHT: 3.55 Decel Dent: 2.73 Aortic Valve AoV Pk Arvin: 1.69 AoV Mn Arvin: 1.03 AoV VTI: 0.36 AoV Pk Grad: 11.00 Aov Mn Grad: 5.00 JOSE Cont.VTI: 2.45 LVOT LVOT Pk Arvin: 1.18 LVOT Mn Arvin: 0.81 LVOT VTI: 0.28 LVOT Pk Grad: 6.00 LVOT Mn Grad: 3.00 LVOT Diam: 2.00 LVOT Area: 3.14 Diastolic Function MV Pk E: 0.58 MV Pk A: 0.69 E/A: 0.80 E'Medial: 9.36 E/E' Med: 6.10 E' Laterial: 12.30 E/E' Lat: 4.70 Right Ventricle TAPSE (mm): 18.00 Tricuspid Valve TR Pk Arvin: 2.24 TR Pk Grad: 20.00 RA Press: 3.00 RVSP: 23.00 Great Vessels Aorta Ao Root-2D: 2.40 2.0-3.7 cm Ao Asc: 2.70 2.1-3.4 cm Pulmonary Valve PV Pk Arvin: 1.09 Peak PV Grad: 5.00 Updated in Other Vendor System with Status of Final Jaden He MD electronically signed on 06/25/2024 12:25:23 PM with status of Final
--- OUTSIDE RECORDS SUMMARY | 2024-06-24 13:04 | XMS_ITS | Continuity of Care Document ---
Author Organization [facility] Address [address] [place] [address] [address] [place] [address] Phone Care Team Providers Care Telemetry Rn Name Role Phone Izaiah MONTGOMERY, FERNANDO, Emre [...] Providers Copied on Encounter [facility], [address] [place] [address] [address], [place], [id number], [place] tel:[phone] [facility] Encounter for follow-up examination after completed treatment for conditions other than malignant neoplasmPain in left leg Izaiah MONTGOMERY, FERNANDO, GRICELDA Andrea. [address] [facility] [address], [place], [place], [id number] , [place]. tel:[phone] Referring Provider: Emre Bliss MD, RVT, GRICELDA, [address] [place] [address], [facility] [place], [address] . tel:[phone] [facility], [address] [place] [address] Dr Burt 1000Suite 1000Jose [place], [id number], [place] tel:[phone] CVR - [place] - [place] Varicose veins of left lower extremity with other complications 4 Izaiah MONTGOMERY RVT, GRICELDA Andrea. [address] [place] [address], [address], [facility] [place], [id number] , [place]. tel:[phone] [facility], [address] [place] [address] Dr Burt 1000[facility] 1000Jose [place], [id number], [place] tel:[phone] CVR - [place] Chronic venous hypertension (idiopathic) with inflammation of left lower extremity 4 Izaiah MONTGOMERY RVT, GRICELDA Andrea. [address] [place] [address], [place] [address], [facility] [place], [id number] , [place]. tel:[phone] Referring Provider: Emre Bliss MD, RVT, GRICELDA, [address] [place] [address], [facility] [place], [address] . tel:[phone] [facility], [address] [place] [address] Dr Burt 1000Suite 1000Jose [place], [id number], [place] tel:[phone] CVR - [place] No Information 4 Izaiah MONTGOMERY RVT, GRICELDA Andrea. [address] [place] [address], Suite [facility], [facility] [place], [id number] , [place]. tel:[phone] Offic/outpt E&m Estab 5 Min Trial- Telemedicine [place] & [place] [facility], [address] [place] [address] Dr Burt 1000Suite 1000Jose [place], [id number], [place] tel:[phone] [facility] - [place] Chronic venous hypertension (idiopathic) with other complications of left lower extremityCramp and spasm 4 Izaiah MONTGOMERY RVT, RPVI Robert. [address] [place] [address], [place], [place], [id number] , [place]. tel:[phone] Offic Cons New/estab Mod-hi 60- CT & [place] [facility], [address] [place] [address] Dr Burt 1000[address], [place], [id number], [place] tel:[phone] CVR - [facility] Chronic venous hypertension (idiopathic) with other complications of bilateral lower extremity 4 Izaiah MONTGOMERY RVT, RPVI Robert. [address] [place] [address], [place], [place], [id number] , [place]. tel:[phone] [place] [facility], [address] [place] [address] [facility] 1000[facility] 1000, [place], [id number], [place] tel:[phone] CVR - [facility] Chronic venous hypertension (idiopathic) with other complications of left lower extremity 4 Izaiah MONTGOMERY RVT, RPVI Robert. [address] [place] [address], [place], [place], [id number] , [place]. tel:[phone] Referring Provider: Emre Bliss MD, RVT, RPVI, [address] [place] [address], [place], [address] . tel:[phone] Family History Family Member Type Diagnosis Age At Onset No Information Payers Payer name Insurance type Covered republican ID Authoriza tion(s) No Information Social History [...]
== END ==
LOC: HO.CARD 10:54
PROVIDERS: PCP Student in an Organized Health Care Education/Training Program; Visit Provider Surgery
DX: R94.31 Abnormal electrocardiogram [ECG] [EKG] (principal)
CPT/HCPCS: 93306

== ENCOUNTER 2024-06-26 08:30 | Outpatient (REF) | payer OTHER, SELFPAY ==
--- OUTSIDE RECORDS SUMMARY | 2024-06-26 08:38 | XMS_ITS | Continuity of Care Document ---
Author Organization [facility] Address [address] [place] [address] [address] [place] [address] Phone Care Team Providers Care Drawer Waxer Name Role Phone Izaiah MONTGOMERY, FERNANDO, Emre [...] Providers Copied on Encounter [facility], [address] [place] [address] [address], [place], [id number], [place] tel:[phone] [facility] Encounter for follow-up examination after completed treatment for conditions other than malignant neoplasmPain in left leg Izaiah MONTGOMERY, FERNANDO, GRICELDA Andrea. [address] [facility] 302, [place], [place], [id number] , [place]. tel:[phone] Referring Provider: Emre Bliss MD, RVT, GRICELDA, [address] [place] [address], [facility] [place], [address] . tel:[phone] [facility], [address] [place] [address] Dr Burt 1000Suite 1000Jose [place], [id number], [place] tel:[phone] CVR - [place] - [place] Varicose veins of left lower extremity with other complications 4 Izaiah MONTGOMERY RVT, GRICELDA Andrea. [address] [place] [address], [address], [facility], [id number] , [place]. tel:[phone] [facility], [address] [place] [address] Dr Burt 1000[facility] 1000Jose [place], [id number], [place] tel:[phone] CV[place] - [place] Chronic venous hypertension (idiopathic) with inflammation of left lower extremity 4 Izaiah MONTGOMERY RVT, GRICELDA Andrea. [address] [place] [address], [place] [address], [facility] [place], [id number] , [place]. tel:[phone] Referring Provider: Emre Bliss MD, RVT, GRICELDA, [address] [place] [address], [place], [address] . tel:[phone] [facility], [address] [place] [address] Dr Burt 1000Suite 1000Jose [place], [id number], [place] tel:[phone] CVR - [place] No Information 4 Izaiah MONTGOMERY RVT, GRICELDA Andrea. [address] [place] [address], Suite [facility] [place] [facility], [facility] [place], [id number] , [place]. tel:[phone] Offic/outpt E&m Estab 5 Min Trial- Telemedicine CT & [place] [facility], [address] [place] [address] Dr Burt 1000Suite 1000Jose [place], [id number], [place] tel:[phone] CV[place] - [place] Chronic venous hypertension (idiopathic) with other complications of left lower extremityCramp and spasm 4 Izaiah MONTGOMERY RVT, RPVI Robert. [address] [place] [address], [place], [place], [id number] , [place]. tel:[phone] Offic Cons New/estab Mod-hi 60- CT & [place] [facility], [address] [place] [address] Dr Burt 1000Suite 1000, [place], [id number], [place] tel:[phone] CVR - [facility] Chronic venous hypertension (idiopathic) with other complications of bilateral lower extremity 4 Izaiah MONTGOMERY RVT, RPVI Robert. [address] [place] [address], [place], [place], [id number] , [place]. tel:[phone] [place] [facility], [address] [place] [address] [facility] 1000[facility] 1000, [place], [id number], [place] tel:[phone] CVR - [facility] Chronic venous hypertension (idiopathic) with other complications of left lower extremity 4 Izaiah MONTGOMERY RVT, RPVI Robert. [address] [place] [address], [place], [place], [id number] , [place]. tel:[phone] Referring Provider: Emre Bliss MD, RVT, RPVI, [address] [place] [address], [place], [address] . tel:[phone] Family History Family Member Type Diagnosis Age At Onset No Information Payers Payer name Insurance type Covered green party ID Authoriza tion(s) No Information Social [...]
== END 2024-06-26 08:31 | disposition home or self-care (01) ==
LOC: HO.US 08:30
PROVIDERS: PCP Student in an Organized Health Care Education/Training Program; Visit Provider Surgery
DX: Z13.89 Encounter for screening for other disorder (principal)

== ENCOUNTER → 2024-07-06 07:23 | Outpatient (BNV) | payer OTHER, SELFPAY | PROVIDERS: PCP Student in an Organized Health Care Education/Training Program; Visit Provider Radiology Diagnostic Radiology | DX: E66.01 Morbid (severe) obesity due to excess calories (principal); K76.0 Fatty (change of) liver, not elsewhere classified; K21.9 Gastro-esophageal reflux disease without esophagitis | CPT/HCPCS: 76700 ==

== ENCOUNTER 2024-08-19 10:00 | Outpatient (REF) | payer OTHER, SELFPAY ==
--- NOTE | ~2024-08-19 | FL_ITS ---
EXAMINATION: XR FLUOROSCOPY UPPER GI SERIES CLINICAL INFORMATION: Morbid obesity due to excess calories. COMPARISON: 09/27/2016. TECHNIQUE: Fluoroscopic air contrast upper GI examination was performed utilizing standard techniques with thin and thick barium and effervescent granules. Numerous spot images were obtained. Several fluoroscopic image hold cine sequences were also obtained. FINDINGS: UPPER GI SERIES: Lateral cine images of the oropharynx and hypopharynx demonstrate normal swallow mechanism with normal epiglottic inversion and soft palate elevation. No laryngeal penetration, glottic or subglottic aspiration identified. No nasopharyngeal reflux present. Hypopharyngeal structures appear normal without evidence of mass or diverticulum. There was no significant cricopharyngeal achalasia. Dual and single contrast images of the esophagus demonstrate normal caliber, contour, and mucosal pattern. No evidence of stricture, mass, or ulcerations identified. Esophageal peristalsis was moderately disordered. No evidence of hiatus hernia identified. Normal GE junction. No significant gastroesophageal reflux was seen during the course of the examination and on reflux views. Dual contrast and single contrast images of the stomach demonstrated normal contour and mucosal pattern without evidence of mass, ulceration, or other abnormality. Contrast freely passed into the gastric antrum and duodenal bulb without delay. Single and air-contrast images of the duodenal bulb demonstrate no abnormality. The duodenal sweep has demonstrates a small second segment diverticulum. It is otherwise normal in appearance, course, and mucosal fold appearance. FLUOROSCOPY TIME: 2 minutes 46 seconds. Number of Spot Images:12 Number of cines obtained: 12 DOSE AREA PRODUCT: 3714 uGy-m2 (microgray-meter squared) FL/FL upper GI w air IMPRESSION: 1. Moderately disordered esophageal motility. 2. No hiatus hernia. No definite gastroesophageal reflux identified during the examination. 3. Small second segment duodenal diverticulum. 4. Remainder of the exam is normal. Electronically signed by: Alex Croft MD 08/19/2024 11:47 AM EDT
== END 2024-08-19 10:01 | disposition home or self-care (01) ==
LOC: HO.XRAY 10:00
PROVIDERS: PCP Student in an Organized Health Care Education/Training Program; Visit Provider Surgery
DX: E66.01 Morbid (severe) obesity due to excess calories (principal); E78.5 Hyperlipidemia, unspecified; K21.9 Gastro-esophageal reflux disease without esophagitis
CPT/HCPCS: 74246

== ENCOUNTER → 2024-08-19 10:02 | Outpatient (BNV) | payer OTHER, SELFPAY | PROVIDERS: PCP Student in an Organized Health Care Education/Training Program; Visit Provider Radiology Diagnostic Radiology | DX: K21.9 Gastro-esophageal reflux disease without esophagitis (principal) | CPT/HCPCS: 74246 ==

== ENCOUNTER → 2024-08-25 10:28 | Outpatient (REF) | payer OTHER, SELFPAY ==
--- NOTE | 2024-08-25 10:30 | CA_ITS ---
Acquisition Time: 2024-08-25 11:16:57 Total Exercise Time: 00:05:01 Test Indications: Abnormal ECG,Pre-Op Evaluation Medications: ATORVASTATIN FAMOTIDINE MELOXICAM Protocol: KIAH Max HR: 171 BPM 107% of Pred: 159 BPM Max BP: 132/80 mmHG Max Work Load: 7.0 METS Exercise stress test with exercise 5 mins 1 sec of Kiah Protocol, achieving 101% MPHR, with reports of SOB, no chest pain, with isolated PACs, with normotensive response to exercise. Without EKG changes meeting criteria for ischemia. In recovery, breathing returned to basreline. Echo images obtained by tech at rest and post peak exercise. Definity contrast utilized. Test reviewed with Dr. He. Referred By: Wyatt Reynoso Electronically Signed By: Juan Peres
== END ==
LOC: HO.CARD 10:28
PROVIDERS: PCP Student in an Organized Health Care Education/Training Program; Visit Provider Surgery
DX: R94.31 Abnormal electrocardiogram [ECG] [EKG] (principal)
CPT/HCPCS: 93350; Q9957

== ENCOUNTER → 2024-08-25 10:30 | Outpatient (BNV) | payer OTHER, SELFPAY | PROVIDERS: PCP Student in an Organized Health Care Education/Training Program | DX: I27.20 Pulmonary hypertension, unspecified (principal); R06.02 Shortness of breath; I49.1 Atrial premature depolarization | CPT/HCPCS: 93016; 93018; 93350; 93352 ==

== ENCOUNTER 2024-09-22 08:05 | Outpatient (AMB) | payer OTHER, SELFPAY ==
[2024-09-22 11:23] VITALS: BMI 37.7
--- NOTE | 2024-09-22 11:23 | A.OFFVIS_ITS ---
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 Operator Required: Yes Boiler Control Room Operator Services: Boiler Control Room Operator Present Information Interpreted: clinical only Allergies adhesive tape [ADHESIVE TAPE] Allergy (Intermediate, Verified 09/22/24 11:35) SKIN BLISTERS Pt states no food/medication a Allergy (Mild, Uncoded 06/01/24 10:22) rash Medication List - Last Reconciled 09/22/24 by Wyatt Reynoso MD atorvastatin 40 mg PO DAILY cholecalciferol (vitamin D3) 125 mcg PO DAILY docusate sodium (Colace) 100 mg PO DAILY famotidine 20 mg PO DAILY meloxicam 15 mg PO DAILY multivitamin 1 tab PO DAILY ondansetron 4 mg PO Q12H pantoprazole 40 mg PO DAILY polyethylene glycol 3350 17 grams PO DAILY sucralfate 10 mL PO BID thiamine HCl (vitamin B1) 100 mg PO DAILY vitamin A palmitate 10,000 units PO DAILY HPI HPI TV 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*: Details: Start time: 11.14am, End time: 11.44am I spent 25 minutes speaking with the patient on the phone plus an additional 5 minutes reviewing and updating records for a total of 30 minutes HPI Comments Details: Overall weight loss: 14lbs, or 6.76% TBWL Is doing 2 powdered Premier shakes (HALF scoop each in 8oz almond milk), 2 Fit Crunch protein bars and one meal (8 forks of protein and 8 forks of salad or vegetables) Exercise: is doing the stationary bike [facility] Medical History (Updated 09/22/24 @ 11:33 by Wyatt Reynoso MD) Obesity DJD (degenerative joint disease) Hyperlipidemia GERD (gastroesophageal reflux disease) Morbid obesity Surgical History Hx of colonoscopy Hx of bladder endoscopy Hx of hysterectomy Hx of breast reduction, elective Family History Mother Asthma Father Diabetes Daughter No problems noted. Daughter No problems noted. Daughter Diabetes Son No problems noted. Son No problems noted. Social History Are you a primary critical care unit nurse to a significant other at home: No Do you presently have visiting nurse or other home services: No Alcohol intake: never Patient Tobacco Use Status: Never used Tobacco Telehealth Telehealth Telehealth Platform: Telephone Location of provider rendering services: practice address Location of patient: address on file Patient Identification confirmed using: Name, : Yes Telehealth method: voice only Patient verbally consented to treatment: Yes Patient verbally consented to billing insurance company: Yes Patient informed of any privacy concerns related to visit: Yes Minutes spent on Phone/Video with Pt.: 30 Assessment & Plan Assessment & Plan (1) Obesity: Code(s): E66.9 - Obesity, unspecified Category: Medical Qualifiers: Obesity type: due to excess calories Obesity classification: adult class 2 (BMI 35 - 39.9) Serious obesity comorbidity presence: with serious comorbidity Body mass index: BMI 37.0-37.9 Qualified Code(s): E66.812 - Obesity, class 2; E66.01 - Morbid (severe) obesity due to excess calories; Z68.37 - Body mass index [BMI] 37.0-37.9, adult Plan: 1. Plan for lap sleeve gastrectomy including upper GI endoscopy. All tests has been completed and reviewed and the patient is cleared for the surgery. If diaphragmatic or ventral hernias are present at time of surgery, these will be repaired laparoscopically as well. The surgery does not replace the need to change your lifestlyle which is the cause of the obesity problem. The surgery provides the motivation to try again to change your lifestyle, it reduces the appetite and make the transition to a better lifestyle easier and doubles the amount of weight you would lose compared to doing the lifestyle change without the surgery. You will need to be on a liquid diet with protein shakes for 2 weeks before surgery to maximize weight loss and boost your nutritional status to recover better from surgery and also for the first two weeks after surgery to let the stomach heal before we introduce other foods. After the first 2 weeks we will introduce protein bars and soft foods like scrambled eggs, cottage cheese and yogurt and after the 6th week will introduce meat, fish and cooked vegetables in small amounts. Over time you should be able to eat everything in small amounts. Side effects like nausea, vomiting, heartburn or abdominal pain are not common in the practice unless you are not following in the practice. This operation requires lifetime commitment to following in our practice and communication with me. You will much less weight and experience side effects if you don?t communicate or not following in the practice. Complications are rare and in our practice is about 1/10 of the national average. However, you can develop bleeding that may require transfusion (hasn?t happened for year in the practice), you may from complications (we did not have any deaths in the practice) and infections. Infections are usually a result of breakdown in communication or not understanding or following directions correctly. They are difficult to treat, they can happen during the first 6 weeks, they may require to be in the hospital for weeks or even months, not being able to eat by mouth and you may have drains and surgeries to try and correct the issue. Other risks and complications include possible conversion to an open procedure, leaks, small bowel obstruction, blood clots, cardiac, or pulmonary complications, as assisted complications such as ulcers, insufficient weight loss and vitamin deficiencies. So far she has proven to be an excellent communicator and very compliant with all our directions accomplishing a great weight loss. I believe t hat she is an excellent candidate and she is ready. 2. Preop prescriptions were provided and explained the purpose of each one. Need to be purchased preop. Start Pantoprazole now as you get it from the pharmacy, 1 pill per day. Sucralfate and Zofran are for after surgery as needed. 3. Bowel prep: please do 7 packets of Miralax mixing each one with a an 8oz glass of water, crystal light, gatorade zero, or propel on 10/04/24 and the same amount on 10/05/24. The Miralax you begin with one packet at a time in 8oz water or crystal light, gatorade zero, or propel as early in the day as you can and you do them back to back until you finish them. Continue the protein shakes during the bowel prep. 4. Needs to purchase 1oz medicine cups . 5. Needs to purchase Children's liquid Tylenol for postop pain control. 6. She needs to stop the Meloxicam as of today 09/22/24. Avoid aspirin, motrin, Advil, Aleve, Ibuprofen, Naproxyn. Tylenol is OK. 7. She needs to purchase the Celebrate vitamins from the hospital's gift shop. 8. Will do basic preop blood work-up on 10/01/24 fasting for 12 hours and is scheduled to see the Anesthesiologist prior to the day of surgery. 9. Importance of adherence to postop folllow-up and recommendations was underscored and she understands that. 10. Stop food and bars as of tomorrow and continue with 5 Premier protein shakes (ONE scoop EACH in 8oz almond milk) at 8am-10am, 11am-1pm, 2pm-4pm, 5pm- 7pm and at 8pm-10pm 11. No soups, broths or V8 12. The patient's medical history has been reviewed and they are considered low risk for post op DVT and therefore DVT prophylaxis is not considered necessary. Travel after surgery was reviewed. The patient has not disclosed any travel plans during the first 30 days after surgery and they have been advised that w ithin the first 30 days after surgery any bus, plane, train or car travel over 2 hours in duration is contraindicated due to the possibility of developing blood clots from immobility. Any travel, needs to include periods of ambulation of 10 minutes in duration every 2 hours. Patient was instructed to discuss any plans for travel during this period with their bariatric surgeon. 13. Use your CPAP daily and bring it to the hospital with your mask 14. Please take at the day of surgery the following medications: NONE 15. Stop any control pills and don't use them for one month after surgery 16. Absolutely no smoking or vaping, or marijuana until the surgery and for at least the first 4 weeks. Only nicotine patches are allowed. 17. Send me weight measurements on Saturday09/28/24 and then on Saturday10/06/24 the day of surgery before you go to the hospital. 18. Avoid any steroids by mouth for any reason. Let me know if someone prescribes them to you 19. These instructions supersede anything else you read in the handbook, anything you watched in videos or classes or you were told by any other provider. If there is any conflict, you follow the above instructions and nothing else. Orders: Orders Comprehensive Met. Panel Today E66.9 - Obesity, unspecified TSH reflex Free T4 Today E66.9 - Obesity, unspecified Type and Screen Today E66.9 - Obesity, unspecified Partial Thromboplastin Time Today E66.9 - Obesity, unspecified C Reactive Protein Today E66.9 - Obesity, unspecified Prothrombin Time INR Today E66.9 - Obesity, unspecified Complete Blood Count Auto Diff Today E66.9 - Obesity, unspecified Lipid Panel Today E66.9 - Obesity, unspecified Hemoglobin A1c Today E66.9 - Obesity, unspecified Insulin Today E66.9 - Obesity, unspecified Medications: New sucralfate 10 mL PO BID 600 mL 2RF K21.9 - Gastro-esophageal reflux disease without esophagitis pantoprazole 40 mg PO DAILY 90 tabs 0RF K21.9 - Gastro-esophageal reflux disease without esophagitis ondansetron Only take one every 12 hours as needed if you have nausea 4 mg PO Q12H 20 tabs 0RF nausea and vomiting R11.0 - Nausea polyethylene glycol 3350 Mix each measuring cup with 8oz of water, Crystal light, or Gatorade zero, or Propel and do 7 measuring cups on 10/04/24 and another 7 measuring cups on 10/05/24 17 grams PO DAILY 238 grams 0RF Z01.818 - Encounter for other preprocedural examination
== END 2024-09-22 11:45 | disposition home or self-care (01) ==
LOC: HO.HBS 08:05
PROVIDERS: PCP Student in an Organized Health Care Education/Training Program; Visit Provider Surgery
DX: E66.812 Obesity, class 2 (principal); Z68.37 Body mass index [BMI] 37.0-37.9, adult
CPT/HCPCS: 99214

== ENCOUNTER → 2024-09-22 08:05 | Outpatient (BNVA) | payer OTHER, SELFPAY | PROVIDERS: PCP Student in an Organized Health Care Education/Training Program; Visit Provider Surgery ==

== ENCOUNTER → 2024-09-25 07:42 | Outpatient (REF) | payer OTHER, SELFPAY ==
--- NOTE | ~2024-09-25 | NM_ITS ---
Lexiscan Myocardial perfusion study Indication: Abnormal EKG Technique: The patient was brought in for a Lexiscan perfusion study on 09/25/2024 and was injected 0.4 mg of Lexiscan intravenously. Within a minute of this injection 40 mCi of sestamibi was given intravenously. Images were obtained using the SPECT gamma camera interlaced with the gating device. Images were obtained in supine position. Resting perfusion study was performed on 09/28/2024. Patient was administered 40 mCi of sestamibi intravenously at rest. Images were then obtained in supine position. Total DLP 153 mGy-cm. Images were processed with the software and compared side to side in short axis, horizontal long axis and vertical long axis views. Findings: Raw aquisition reviewed. The stress perfusion study showed no significant perfusion abnormality. Both uncorrected as well as CT attenuation corrected images were reviewed. The gated study shows normal LV systolic function with calculated LVEF of 62%. LV cavity is normal in size. The gated study shows normal wall thickening and contraction of segments. Resting study shows no significant perfusion abnormality. Gating at rest reveals normal wall motion with ejection fraction at 71%. The findings are consistent with no clear reversible or fixed perfusion defects. NM/NM francis perf SPECT rest & str Impression: 1. Myocardial perfusion imaging study shows normal myocardial perfusion. 2. Gated LVEF is 62% during stress; > 70% during rest. 3. Transient ischemic dilatation not present. EKG component of the test reported separately. Electronically signed by: Jaden He MD 09/28/2024 05:30 PM EDT
--- NOTE | 2024-09-25 07:45 | CA_ITS ---
Acquisition Time: 2024-09-25 08:05:29 Total Exercise Time: 00:02:00 Test Indications: Abnormal ECG Medications: ATORVASTATIN FAMOTIDINE MELOXICAM Protocol: LEXISCAN Max HR: 93 BPM 58% of Pred: 159 BPM Max BP: 112/68 mmHG Max Work Load: 1.0 METS Pharmacological stress tets with Lexiscan while pt swings her legs in chair, with reports of abdominal discomfort, without any arrythmias, with normotensive response to injection. Nondiagnostic EKG for ischemia. In recovery, pt treated with IVP Aminophylline 75 mg to reverse Lexiscan after which pt feeling back to baseline. Nuclear images pending. Test reviewed with Dr. Mclaughlin. Referred By: Wyatt Reynoso Electronically Signed By: Juan Peres
[2024-09-25 09:33] LABS: MANUAL DIFF FLAG NO
[2024-09-25 10:46] LABS: Basophils Percent Auto 0.5 % (0-2); Eosinophils Absolute Auto 0.1 X10*3/uL (0.0-0.4); Hematocrit 43.9 % (37.0-47.0); Hemoglobin 14.1 g/dl (12.0-16.0); Imm Gran Abs Auto 0.01 X10*3/uL (0.00-0.03); Imm Gran Pct Auto 0.2 % (0.0-0.4); Lymphocytes Absolute Auto 2.4 X10*3/uL (1.2-4.9); Lymphocytes Percent Auto 39.7 % (20-40); Mean Corpuscular HGB Conc 32.1 g/dl (31.0-35.0); Mean Corpuscular Hemoglobin 29.1 pg (27.0-33.0); Mean Corpuscular Volume 90.5 fL (80.0-98.0); Mean Platelet Volume 10.9 fL (9.4-12.3); Monocytes Absolute Auto 0.5 X10*3/uL (0.1-1.2); Monocytes Percent Auto 7.4 % (2-11); Neutrophils Percent Auto 50.2 % (45-73); Platelet Count 196 X10*3/uL (160-400); Red Blood Count 4.85 X10*6/uL (4.20-5.50); Red Cell Distribution Width 13.2 % (11.0-16.0); White Blood Count 6.1 X10*3/uL (4.8-10.8)
[2024-09-25 11:00] LABS: Estimated Average Glucose 114 mg/dL; Hemoglobin A1C 132.6539 umol/L; Hemoglobin A1c % 5.6 % (<6.0)
[2024-09-25 11:15] LABS: Partial Thromboplastin Time 31.7 SEC (26.0-36.8)
== END ==
LOC: HO.CARD 07:42
PROVIDERS: PCP Student in an Organized Health Care Education/Training Program; Visit Provider Surgery
DX: Z01.818 Encounter for other preprocedural examination (principal); R06.02 Shortness of breath; R94.31 Abnormal electrocardiogram [ECG] [EKG]; E66.9 Obesity, unspecified
CPT/HCPCS: 36415; 78452; 80053; 80061; 83036; 83525; 84443; 85025; 85610; 85730; 86140; 86850; 86900; 86901; 93017; A9500; J0280; J2785

== ENCOUNTER → 2024-09-25 07:45 | Outpatient (BNV) | payer OTHER, SELFPAY | PROVIDERS: PCP Student in an Organized Health Care Education/Training Program | DX: R94.31 Abnormal electrocardiogram [ECG] [EKG] (principal) | CPT/HCPCS: 78452; 93016; 93018 ==

== ENCOUNTER 2024-10-01 10:31 | Inpatient (IN) | payer OTHER, SELFPAY ==
--- OUTSIDE RECORDS SUMMARY | 2024-09-08 08:18 | XMS_ITS | Continuity of Care Document ---
Author Organization [facility] Address [address] [place] [address] [address] [place] [address] Phone Care Team Providers Care Client Program Manager Name Role Phone Izaiah MONTGOMERY, FERNANDO, Emre [...] Providers Copied on Encounter [facility], [address] [place] [address] [address], [place], [id number], [place] tel:[phone] [facility] Encounter for follow-up examination after completed treatment for conditions other than malignant neoplasmPain in left leg Izaiah MONTGOMERY, FERNANDO, GRICELDA Andrea. [address] [facility] 302, [place], [place], [id number] , [place]. tel:[phone] Referring Provider: Emre Bliss MD, RVT, GRICELDA, [address] [place] [address], [facility] [place], [address] . tel:[phone] [facility], [address] [place] [address] Dr Burt 1000Suite 1000Jose [place], [id number], [place] tel:[phone] CVR - [place] Varicose veins of left lower extremity with other complications 4 Izaiah MONTGOMERY RVT, GRICELDA Andrea. [address] [place] [address], [address], [facility] [place], [id number] , [place]. tel:[phone] [facility], [address] [place] [address] Dr Burt 1000[facility] 1000Jose [place], [id number], [place] tel:[phone] CVR - [place] Chronic venous hypertension (idiopathic) with inflammation of left lower extremity 4 Izaiah MONTGOMERY RVT, GRICELDA Andrea. [address] [place] [address], [place] [address], [facility] [place], [id number] , [place]. tel:[phone] Referring Provider: Emre Bliss MD, RVT, GRICELDA, [address] [place] [address], [place], [address] . tel:[phone] [facility], [address] [place] [address] Dr Burt 1000Suite 1000Jose [place], [id number], [place] tel:[phone] [facility] - [place] No Information 4 Izaiah MONTGOMERY RVT, GRICELDA Andrea. [address] [place] [address], Suite [facility], [facility] [place], [id number] , [place]. tel:[phone] Offic/outpt E&m Estab 5 Min Trial- Telemedicine CT & [place] [facility] [facility], [address] [place] [address] Dr Burt 1000Suite 1000Jose [place], [id number], [place] tel:[phone] [facility] - [place] Chronic venous hypertension (idiopathic) with other complications of left lower extremityCramp and spasm 4 Izaiah MONTGOMERY RVT, RPVI Robert. [address] [place] [address], [place], [place], [id number] , [place]. tel:[phone] Offic Cons New/estab Mod-hi 60- CT & [place] [facility], [address] [place] [address] Dr Burt 1000[address] 1000, [place], [id number], [place] tel:[phone] CVR - [facility] Chronic venous hypertension (idiopathic) with other complications of bilateral lower extremity 4 Izaiah MONTGOMERY RVT, RPVI Robert. [address] [place] [address], [place], [place], [id number] , [place]. tel:[phone] [place] [facility], [address] [place] [address] [facility] 1000[facility] 1000, [place], [id number], [place] tel:[phone] CVR - [facility] Chronic venous hypertension (idiopathic) with other complications of left lower extremity 4 Izaiah MONTGOMERY RVT, RPVI Robert. [address] [place] [address], [place], [place], [id number] , [place]. tel:[phone] Referring Provider: Emre Bliss MD, RVT, RPVI, [address] [place] [address], [place], [address] . tel:[phone] Family History Family Member Type Diagnosis Age At Onset No Information Payers Payer name Insurance type Covered democrat ID Authoriza tion(s) No Information Social History [...]
[2024-09-28 09:54] LABS: Chloride 105 mmol/L (96-108); Sodium 140 mmol/L (135-145)
[2024-09-28 09:55] LABS: Alanine Aminotransferase 33 U/L (0-31); Albumin Level 4.2 g/dL (3.5-5.0); Alkaline Phosphatase 85 U/L (39-117); Anion Gap 20 (12-20); Aspartate Amino Transferase 46 U/L (5-31); Bilirubin Total 0.6 mg/dL (0.0-1.0); Blood Urea Nitrogen 15 mg/dL (9-16); C Reactive Protein 1.41 mg/dL (< or = 0.50); Calcium 9.5 mg/dL (8.4-10.2); Carbon Dioxide 19 mmol/L (22-29); Cholesterol 213 mg/dL (<200); Estimated Glomerular Filt Rate > 60; HDL Cholesterol 43 mg/dL (>40); LDL Cholesterol Calculated 153 mg/dL (<100); Total Protein 8.2 g/dL (6.5-8.0); Triglycerides 87 mg/dL (<150)
[2024-09-28 10:09] LABS: Insulin 4 uU/mL (2-29); TSH reflex Free T4 2.31 uIU/mL (0.32-4.0)
[2024-09-28 10:14] LABS: Glucose Random 58 mg/dL (60-115)
[2024-09-29 09:52] VITALS: BMI 36.7
--- NOTE | 2024-09-29 13:26 | HO.ANESPROP2 ---
Documented by User: Yary Johnson NP 09/29/24 13:32 HPI - Anesthesia Eval Consult details Narrative: 59yo F for Gastrectomy Sleeve - EGD, possible diaphragmatic hernia, possible ventral hernia, possible open PMFSH Active Problems Active Problems: All Active Problems BMI 37.0-37.9, adult (Acute) Constipation (Acute) Vitamin B1 deficiency (Acute) Vitamin A deficiency (Acute) Abnormal EKG (Acute) Vitamin D deficiency (Acute) Obesity (Acute) DJD (degenerative joint disease) (Acute) Hyperlipidemia (Acute) GERD (gastroesophageal reflux disease) (Acute) Morbid obesity (Acute) Past Medical History Medical History (Updated 09/29/24 @ 09:40 by Meryl Bliss RN) Back pain Arthritis Pre-diabetes Sleep apnea Obesity DJD (degenerative joint disease) Hyperlipidemia GERD (gastroesophageal reflux disease) Morbid obesity Family History Family History Mother Asthma Father Diabetes Daughter No problems noted. Daughter No problems noted. Daughter Diabetes Son No problems noted. Son No problems noted. Surgical History Surgical History (Updated 09/29/24 @ 09:46 by Meryl Bliss RN) History of esophagogastroduodenoscopy (EGD) Hx of colonoscopy Hx of bladder endoscopy Hx of hysterectomy Hx of breast reduction, elective History of Problems with Anesthesia: No Social History Social History Are you a primary respiratory care specialist to a significant other at home: No Do you presently have visiting nurse or other home services: No Alcohol intake: never Patient Tobacco Use Status: Never used Tobacco Use of substances other than those prescribed or required for medical reasons: No Have you been hit, kicked, punched, or otherwise hurt by someone within the past year? If so, by whom?: No Are you DNR?: No Advance Directives: No Advance Directives Information Provided: No Advance Directives on File: No Patient : No : No Poor oral hygiene: No Meds Allergies Allergy/AdvReac Type Severity Reaction Status Date / Time adhesive tape [ADHESIVE TAPE] Allergy Intermediate SKIN Verified 10/01/24 10:35 BLISTERS Exam Height,Weight and Vital Signs: Height 5 ft Weight 85.275 kg Pertinent Lab Results Pertinent Lab Results: Laboratory Tests 09/28/24 08:54 Sodium 140 Potassium 4.0 Chloride 105 Carbon Dioxide 19 L Anion Gap 20 BUN 15 Creatinine 0.87 Estim Creat Clear Calc TNP Estimated GFR > 60 Random Glucose 58 L* Insulin Level 4 Calcium 9.5 Total Bilirubin 0.6 AST 46 H ALT 33 H Alkaline Phosphatase 85 C-Reactive Protein 1.41 H Total Protein 8.2 H Albumin 4.2 Triglycerides 87 Cholesterol 213 H LDL Cholesterol, Calc 153 H HDL Cholesterol 43 TSH 2.31 Laboratory Tests 09/25/24 09:32 WBC 6.1 Hgb 14.1 Hct 43.9 Plt Count 196 Narrative Narrative: EKG 05/2024 Vent. Rate : 60 BPM Atrial Rate : 60 BPM P-R Int : 126 ms QRS Dur : 74 ms QT Int : 418 ms P-R-T Axes : 42 14 33 degrees QTcB Int : 418 ms Normal sinus rhythm Increased R/S ratio in V1, consider early transition or posterior infarct Abnormal ECG When compared with ECG of 27-Sep-2016 10:36, No significant change was found ECHO 2024 Conclusions: - The left ventricular systolic function is normal. The calculated ejection fraction is 62% by biplane method. - There is mild to moderate tricuspid valve regurgitation. Stress ECHO 2024 Protocol: JOSÉ ANTONIO Max HR: 171 BPM 107% of Pred: 159 BPM Max BP: 132/80 mmHG Max Work Load: 7.0 METS Exercise stress test with exercise 5 mins 1 sec of José Antonio Protocol, achieving 101% MPHR, with reports of SOB, no chest pain, with isolated PACs, with normotensive response to exercise. Without EKG changes meeting criteria for ischemia. In recovery, breathing returned to basreline. Echo images obtained by tech at rest and post peak exercise. Definity contrast utilized. Test reviewed with Dr. He. Exercise echocardiogram reviewed. Study quality is suboptimal. At rest, there is normal LVEF and wall motion. With peak activity, there is no obvious evidence of exercise induced wall motion abnormality. No evidence of exercise induced diastolic dysfunction. Milid pulmonary hypertension post exercise. Overall, limited study quality but within this limitation, no suggestion of ischemia. Exercise induced mild pulmonary hypertension. NM francis perf SPECT rest & str 09/2024 Impression: 1. Myocardial perfusion imaging study shows normal myocardial perfusion. 2. Gated LVEF is 62% during stress; > 70% during rest. 3. Transient ischemic dilatation not present. EKG component of the test reported separately. Assessment and Plan Assessment Anesthesia Assessment: Chart Reviewed Final Anesthetic Review History of Problems with Anesthesia: No Documented by User: Desmond Leggett MD 10/01/24 11:45 PMFSH Past Medical History Medical History (Updated 09/29/24 @ 09:40 by Meryl Bliss RN) Back pain Arthritis Pre-diabetes Sleep apnea Obesity DJD (degenerative joint disease) Hyperlipidemia GERD (gastroesophageal reflux disease) Morbid obesity Family History Family History Mother Asthma Father Diabetes Daughter No problems noted. Daughter No problems noted. Daughter Diabetes Son No problems noted. Son No problems noted. Family history of problems with anesthesia: No Surgical History Surgical History (Updated 09/29/24 @ 09:46 by Meryl Bliss RN) History of esophagogastroduodenoscopy (EGD) Hx of colonoscopy Hx of bladder endoscopy Hx of hysterectomy Hx of breast reduction, elective Social History Social History Are you a primary respiratory care specialist to a significant other at home: No Do you presently have visiting nurse or other home services: No Alcohol intake: never Patient Tobacco Use Status: Never used Tobacco Use of substances other than those prescribed or required for medical reasons: No Have you been hit, kicked, punched, or otherwise hurt by someone within the past year? If so, by whom?: No Are you DNR?: No Advance Directives: No Advance Directives Information Provided: No Advance Directives on File: No Patient : No : No Poor oral hygiene: No Meds Allergies Allergy/AdvReac Type Severity Reaction Status Date / Time adhesive tape [ADHESIVE TAPE] Allergy Intermediate SKIN Verified 10/01/24 10:35 BLISTERS Exam Airway Mallampati Class: III TM Dist: >3cm Neck ROM: Full Heart: rrr Lungs: cta Assessment and Plan Assessment Anesthesia Assessment: Anesthesia Plan Discussed Final Anesthetic Review Family History of Problems with Anesthesia: No NPO: Yes ASA Class: III Final Preanesthetic Review: No Changes in Pt Med Stat, Meds/Allgs Chart Reviewed, Consent Obtained/Reviewed and Anes Risks/Benef Reviewed Patient Risk: Intermediate Procedure Risk: Intermediate Anesthetic Plan Anesthetic Plan: GA Disposition: Standard PACU
[2024-10-01] VITALS (13 sets, daily range): BP systolic 132–169; BP diastolic 63–94; PULSE 54–76; RESP 10–18; TEMP 35.9–36.8; O2SAT 93–98
--- NOTE | 2024-10-01 10:56 | PHA.MEDREC ---
Pharmacy Consult ? Medication Reconciliation Pharmacy has reviewed the medication reconciliation completed by nursing.
[2024-10-01] MEDS: Lactated Ringers 1,000 ML 999 ML IV (10:59)
[2024-10-01] MEDS: Aprepitant 32 MG/4.4 ML VIAL IVPUSH (11:00)
--- OUTSIDE RECORDS SUMMARY | 2024-10-01 12:14 | XMS_ITS | Continuity of Care Document ---
Author Organization [facility] Address [address] [place] [address] [address] [place] [address] Phone Care Team Providers Care Firer Marine Name Role Phone Izaiah MONTGOMERY, FERNANDO, Emre [...] Providers Copied on Encounter [facility], [address] [place] [address] [address], [place], [id number], [place] tel:[phone] [facility] Encounter for follow-up examination after completed treatment for conditions other than malignant neoplasmPain in left leg Izaiah MONTGOMERY, FERNANDO, GRICELDA Andrea. [address] [facility] [address], [place], [place], [id number] , [place]. tel:[phone] Referring Provider: Emre Bliss MD, RVT, GRICELDA, [address] [place] [address], [facility] [place], [address] . tel:[phone] [facility], [address] [place] [address] Dr Burt [address]Jose [place], [id number], [place] tel:[phone] [facility] - [place] [facility] [place] Varicose veins of left lower extremity with other complications 4 Izaiah MONTGOMERY RVT, GRICELDA Andrea. [address] [place] [address], [address], [facility] [place], [id number] , [place]. tel:[phone] [facility], [address] [place] [address] Dr Burt [address] [address], [id number], [place] tel:[phone] [facility] [place] Chronic venous hypertension (idiopathic) with inflammation of left lower extremity 4 Izaiah MONTGOMERY RVT, GRICELDA Andrea. [address] [place] [address], [place] [address], [facility] [place], [id number] , [place]. tel:[phone] Referring Provider: Emre Bliss MD, RVT, GRICELDA, [address] [place] [address], [facility] [place], [address] . tel:[phone] [facility], [address] [place] [address] Dr Burt [address]Jose [place], [id number], [place] tel:[phone] [facility] - [place] No Information 4 Izaiah MONTGOMERY RVT, GRICELDA Andrea. [address] [place] [address], Suite [facility], [facility] [place], [id number] , [place]. tel:[phone] Offic/outpt E&m Estab 5 Min Trial- Telemedicine [place] & [place] [facility], [address] [place] [address] Dr Burt [address]Jose [place], [id number], [place] tel:[phone] [facility] - [place] Chronic venous hypertension (idiopathic) with other complications of left lower extremityCramp and spasm 4 Izaiah MONTGOMERY RVT, RPVI Robert. [address] [place] [address], [place], [place], [id number] , [place]. tel:[phone] Offic Cons New/estab Mod-hi 60- CT & [place] [facility], [address] [place] [address] Dr [address]urt [address], [place], [id number], [place] tel:[phone] CVR - [facility] Chronic venous hypertension (idiopathic) with other complications of bilateral lower extremity 4 Izaiah MONTGOMERY RVT, RPVI Robert. [address] [place] [address], [place], [place], [id number] , [place]. tel:[phone] [facility], [address] [place] [address] [facility] [address] [address], [place], [id number], [place] tel:[phone] CVR - [facility] Chronic venous hypertension (idiopathic) with other complications of left lower extremity 4 Izaiah MONTGOMERY RVT, RPVI Robert. [address] [place] [address], [place], [place], [id number] , [place]. tel:[phone] Referring Provider: Emre Bliss MD, RVT, RPVI, [address] [place] [address], [place], [address] . tel:[phone] Family History Family Member Type Diagnosis Age [...]
--- NOTE | 2024-10-01 12:21 | P.HPSUR_ITS ---
Pre-Procedural Eval Section A - 24 Hr Update-Section A only Date of Service: 10/01/24 The patient is an INPATIENT: Yes The patient has been examined within 24 hours of the surgical procedure. The History & Physical has been completed within 30 days and I have reviewed it.: Yes Section B - Complete if H&P > 30 days Chief Complaint: Severe Obesity Relevant Family History (Specify if Yes): No Relevant Social History: None Present Medications: None Medical History: No relevant PMH History of Previous Operations: No relevant previous surgery Allergies: Allergies Allergy/AdvReac Type Severity Reaction Status Date / Time adhesive tape [ADHESIVE TAPE] Allergy Intermediate SKIN Verified 10/01/24 10:35 BLISTERS Review of Systems Sugical H&P ROS: Negative: Constitution, Cardiovascular, Respiratory, Neurolog ical, Psychiatric, Hem-Onc, Allergic/Immunologic, Gastrointestinal, Genitourinary, Musculoskeletal, Integumentary, Endocrine and Eyes/Ears/Nose/Throat Exam Surgical H&P Exam: Normal: HEENT, Normal: Heart, Normal: Lungs, Normal: Extremities, Normal: Abdomen, Normal: Skin and Normal: Neurological Plan Diagnosis/Plan: Unchanged I have reviewed the history and physical and performed a pertinent physical examination on my patient. No changes have occurred unless specified. Time Spent With Patient Time: Total time managing care of this patient today ____ minutes.
--- NOTE | 2024-10-01 12:22 | PM.OP ---
Brief Operative Note Date of Service: 10/01/24 Pre-op diagnosis: Severe obesity with comorbidities (see below) Post-op diagnosis: same (& abdominal congenital adhesions) Procedure: INITIAL PATIENT BMI ON PRESENTATION AT OUR OFFICE: 40.4 kg/m2 LAST BMI BEFORE SURGERY: 37.9 kg/m2 COMORBIDITIES: sleep apnea on CPAP, GERD, DJD, liver steatosis, LVH, hyperlipidemia ?The patient presented to the Weight Management Program with significant obesity that was negatively impacting the patient's comorbidities as listed above.? The program is a phased program with a special focus on preoperative medical weight management to promote substantial weight loss and prepare the patients for the second phase of the program: bariatric surgery. The patient participated in an intensive weekly lifestyle ?intervention and exercise program during which the patient ?has lost between the initial office visit and the last preoperative visit 23lbs, or 11.1% of initial actual body weight. It was deemed appropriate for the patient to now have bariatric surgery. In light of the current Covid-19 pandemic and the well documented strong association of obesity and increased risk of worse outcomes if infected with Covid-19 (REFERENCES:https://pubmed.ncbi.nlm.nih.gov/56736856/,?https://pubmed.ncbi.nlm.nih.gov/94554796/), any delay in undergoing bariatric surgery may lead to the patient's worsening health condition and increased?risk of more severe Covid-19 disease if infected. In addition a recent?study from [facility] published in [facility] on 05/22/2021 ([email or web address]) found that, among patients with obesity, substantial weight loss achieved with surgery was associated with improved outcomes of COVID-19 infection. The findings suggest that obesity can be a modifiable risk factor for the severity of COVID-19 infection. In addition, the patient met the BMI-criteria for bariatric surgery based on the BMI on initial presentation. The patient should not be penalized for achieving such weight loss because ?it is not sustainable long-term without surgical intervention and it was achieved in preparation for bariatric surgery ?under my direction and based on my published research ([email or web address] and?https://www.soard.org/article/[email or web address])26430-X/pdf) ?that a 10% preoperative weight loss improves long-term weight loss after surgery and reduces perioperative complications.? Insurance carriers such as [facility] have endorsed my recommendations ?and have included in their policies criteria to include a 10% preoperative weight loss requirement. PROCEDURE: Esophago-gastroscopy,, laparoscopic lysis of adhesions, laparoscopic sleeve gastrectomy and laparoscopic gastropexy INDICATIONS: This is a 59 year-old female who was electively scheduled for laparoscopic, possibly open sleeve gastrectomy. The risks and complications of the procedure were discussed with the patient in advance, particularly the possibility of ; pulmonary embolism; staple line leak; bleeding; GERD; cardiac, pulmonary, or renal complications; as well as long-term problems such as insufficient weight loss, vitamin deficiency, strictures, or ulcers. The patient understood all the risks, and was in agreement to proceed with surgery. DESCRIPTION OF PROCEDURE: After informed consent was obtained from the patient, the patient was given preoperative antibiotics, and was transferred to the operating room. After successful induction of general anesthesia, pneumatic compression devices were placed on both lower extremities. An upper endoscopy was performed next. The oropharynx and esophagus appeared to be within normal limits. There was no diaphragmatic hernia present. The stomach was entered. Then after all fluid and air were suctioned and the stomach was fully decompressed, the scope was withdrawn and secured in the mid esophagus. The patient was then prepped and draped in the usual sterile manner, and abdominal access was established at the right upper quadrant with the Cali technique. A 12 mm blunt port was inserted, and the abdomen was insufflated with CO2 to a pressure of 15 mmHg. Under direct visualization, additional ports were placed, specifically two 5 mm Versi-step ports to the left upper quadrant, and a 5 mm Versi-Step port to the right upper quadrant. 1% lidocaine plain was used to infiltrate all port sites as well as all fascia defects. There were adhesions in the abdomen from previous hysterectomy involving the omentum and the left anterior abdominal wall. Those were lysed completely with the ultrasonic device. Following that, the patient was placed in a steep reverse Trendelenburg position. An additional 5 mm port was placed to the right flank for the Mediflex retractor that was used to retract the left lobe of the liver. The gastro-esophageal fat pad was opened with the ultrasonic device (Thunderbeat, Olympus) and the anterior esophagus and hiatus were exposed. The angle of His was opened with the ultrasonic device the fundus of the stomach from any diaphragmatic and splenic attachments. I then opened the gastrocolic ligament between the transverse colon and the greater curvature of the stomach with the ultrasonic device to enter the lesser sac and facilitate the ligation of the short gastric vessels. I started at a mid-point along the greater curvature and using the Thunderbeat, all short gastric vessels were divided all the way to the angle of His until the left torie was completely dissected at its entirety. I then divided the gastro-colic ligament distally to a distance of about 3-4 cm proximal to the pylorus. There were extensive congenital adhesions between the pancreas and posterior gastric wall. Those were lysed completely with the ultrasonic device. Adhesiolysis took approximately 45 min to complete. The stomach was then divided transversely with one Endo VIRGILIO-45 purple and three VIRGILIO-60 articulating purple loads using the SIGNIA stapler and loads. Every effort was made that the gastric sleeve had a tubular shape and an even caliber throughout. Once the sleeve resection was completed, the staple line of the gastric sleeve was reinforced with Hemoclips. The resected stomach was retrieved without difficulty from the Cali port. A gastropexy was then performed in order to prevent postoperative GERD and partial gastric volvulus. Several interrupted 2.0 Surgidac sutures were placed between the sleeve's staple line and the previously divided greater omentum and gastro-colic ligament using the Endo-Stitch device. ?An upper endoscopy was performed. There was no narrowing at the GE junction. The scope was easily advanced all the way to the pylorus which was clearly visualized. There was no narrowing anywhere and the sleeve's caliber was even throughout. The sleeve's staple line was inspected and there was no evidence of ischemia, bleeding or dehiscence. At that point the gastroscope was withdrawn from the patient?s mouth while we were decompressing the bowel and the stomach from any remaining air. I looked into the lesser sac to see how the sleeve was situating and it was situating well. There was no bleeding from the staple line, spleen, or short gastric vessels. The Mediflex retractor was removed, and the undersurface of the liver was inspected and there was no bleeding. The patient was placed in supine position. I closed the fascial defect of the 12 mm port site with a figure of eight #1 Polysorb suture. Then 30cc Ropivacaine plain with 10 mg of Dexamethasone were used to infiltrate the fascial closure as well as all skin incisions. At this point, the abdomen was deflated, all ports were removed under direct vision, and no bleeding was noted from any of the port sites. The skin incisions were irrigated with saline and were closed with 4-0 absorbable monofilament sutures. Steri-Strips and OpSites were used to cover all incisions. The patient was extubated and was transferred in stable condition to the recovery room for further care. I was present and performed all whitfield parts of the procedure. Ms. Jay was the assistant. There were no residents to assist with this case. Ken Reynoso MD, PhD, FACS Surgeon: Wyatt Reynoso MD Anesthesia: GETA, local and other (TAP block) Was an Lining Machine Operator used for this Procedure?: No Lining Machine Operator: Deepti Jay Estimated blood loss (mL): 10 IV fluids (mL): 2,500 Urine output (mL): 0 (No Villeda to record output) Pathology: other (1) Stomach, 2) GEJ fat pad) Condition: stable Disposition: PACU
--- NOTE | 2024-10-01 12:26 | P.PNGS_ITS ---
Subjective Subjective Date of Service: 10/02/24 Interval history: Feels well. Mild incisional pain. She is tolerating phase 1 bariatric diet Physical Exam 2 Vital Signs: Vital Signs: Last Vital Signs Temp 97.5 F 10/01/24 10:36 Pulse 75 10/01/24 10:36 Resp 16 10/01/24 10:36 BP 146/79 H 10/01/24 10:36 Pulse Ox 96 10/01/24 10:36 O2 Del Method Room Air 10/01/24 10:36 BMI result Body Mass Index 36.7 GI: Inspection: Yes normal to inspection, Yes incision (clean, dry and intact) and Yes obesity Palpation (GI): Soft to palpation Extrem: Right lower extremity: normal to inspection (no calf tenderness) L eft lower extremity: normal to inspection (no calf tenderness) Objective Data Active Medications Fentanyl (Fentanyl Citrate/Pf 100 Mcg/2 Ml Vial) 50 mcg IVPUSH Q5M PRN PRN Reason: Pain, Moderate to Severe (Pain Scale 4-10) Stop: 10/01/24 17:45 Lactated Ringer's (Lr) 1,000 mls @ 100 mls/hr IVCONT .Q10H IGNACIO Lactated Ringer's (Lr) 1,000 mls @ 999 mls/hr IV .Q1H1M [facility] Stop: 10/01/24 12:45 Last Admin: 10/01/24 10:59 Dose: 999 mls/hr Documented By: NAN Naloxone HCl (Naloxone Hcl 0.4 Mg/Ml Vial) 0.04 mg IVPUSH Q5M PRN PRN Reason: Excessive sedation or RR < 8 Ondansetron HCl (Ondansetron Hcl 4 Mg/2 Ml Vial) 4 mg IVPUSH ONCE PRN PRN Reason: Nausea and Vomiting Stop: 10/01/24 17:46 Labs 10/02/24 05:46 10/02/24 05:46 Procedures Date of Service Date of Service: 10/02/24 Progress Note: A&P Assessment and plan (1) Obesity: Status: Acute Assessment and Plan: s/p laparoscopic sleeve gastrectomy, lysis of adhesions and gastropexy Doing well Will check am labs and if OK the patient will be discharged home (2) BMI 37.0-37.9, adult: Status: Acute (3) Hyperlipidemia: Status: Acute (4) GERD (gastroesophageal reflux disease): Status: Acute (5) Sleep apnea: Status: Acute (6) DJD (degenerative joint disease): Status: Acute (7) Steatosis, liver: Status: Acute (8) LVH (left ventricular hypertrophy): Status: Acute (9) Congenital intra-abdominal adhesions: Status: Acute (10) S/P laparoscopic sleeve gastrectomy: Status: Acute Time Spent With Patient Time: Total time managing care of this patient today ____ minutes. Quality Stroke Does the patient have a stroke diagnosis?: No VTE Prior VTE?: No VTE Risk Level:: Medical - moderate - high VTE Device Contraindication: N/A - Device Ordered VTE Drug Contraindication: Treatment Not Indicated
[2024-10-01] MEDS: ceFAZolin Sodium/Dextrose,Iso 2 GM/50 ML PIGGYBACK IV ×2 (13:02→18:11)
--- NOTE | 2024-10-01 15:23 | PM.DS ---
DS: Providers Provider Date of admission: 10/01/24 10:31 Primary care physician: Rasheeda Noble DO DS: Diagnosis Discharge Diagnosis (1) Obesity: Status: Acute (2) BMI 37.0-37.9, adult: Status: Acute (3) Hyperlipidemia: Status: Acute (4) GERD (gastroesophageal reflux disease): Status: Acute (5) Sleep apnea: Status: Acute (6) DJD (degenerative joint disease): Status: Acute (7) Steatosis, liver: Status: Acute (8) LVH (left ventricular hypertrophy): Status: Acute DS: Summary Hospital Course Hospital Course: ADMITTING DIAGNOSIS: obesity, GERD, HLD, DJD, LVH, VIKTOR DISCHARGE DIAGNOSIS: same, s/p laparoscopic sleeve gastrectomy and gastropexy PAST SURGICAL HISTORY:? Hx of colonoscopy Hx of bladder endoscopy Hx of hysterectomy Hx of breast reduction, elective PROCEDURE: upper endoscopy, laparoscopic sleeve gastrectomy and gastropexy DISCHARGE SUMMARY: History of Present Illness: The patient is a?59 year-old woman with a BMI of 36.7 kg/m2 and associated co-morbidities as described above. The patient had extensive work-up, lost?19 lbs preoperatively and was electively scheduled for laparoscopic, possible open sleeve gastrectomy and gastropexy. Risks and complications of the surgery were discussed with the patient in advance, particularly the possibility of , pulmonary embolism, anastomotic leak, bleeding, bowel injury, GERD, cardiac, renal or pulmonary complications. The patient understood all the risks and was in agreement with the surgical plan. Hospital Course: The patient underwent an uneventful laparoscopic sleeve gastrectomy with gastropexy on the day of admission. Postoperatively, the patient was transferred to the surgical floor. The patient received IV acetaminophen and IV Dilaudid for pain control. Patient was started on bariatric phase 1 diet POD #0. On postoperative day one, the patient was feeling well without nausea, vomiting, fevers, or tachycardia. The patient had some mild incisional pain and the abdomen was soft.? ? On the morning of postoperative day one, the patient was continued on 1 ounce of water or ice every half hour. During the day, the patient did fairly well, having some incisional pain, but able to ambulate adequately and to tolerate liquids well. Since the patient is doing well, we decided that the patient was ready to be discharged. The patient was given instructions to follow-up in office next week and to call the office for any fever over 101, persistent abdominal pain, nausea, vomiting, GERD, symptoms of DVT such as calf tenderness, or leg swelling, or pulmonary embolism such as chest pain or shortness of breath.? The patient was also instructed to drink 40-60 ounces of liquids per day using the 1-ounce cups. The patient had been given prescriptions for Tylenol for pain, Zofran prn for nausea, and pantoprazole and carafate previously. The patient was encouraged to ambulate and use the incentive spirometer. The patient was allowed to shower, but no baths, and encouraged to stay active at home. All of these instructions were given to the patient personally. All questions were answered and the patient understood all instructions, the instructions were also given to the patient in print. Time Attestation Discharge Coordination Time (in mins): 30 Quality: Safe Use of Opioids Does Pt have an Active Cancer Diagnosis on the Problem List?: No Quality: Stroke Does the patient have a stroke diagnosis?: No Physical Exam Vital Signs: Vital Signs: Last Vital Signs Temp 97.5 F 10/01/24 10:36 Pulse 75 10/01/24 10:36 Resp 16 10/01/24 10:36 BP 146/79 H 10/01/24 10:36 Pulse Ox 96 10/01/24 10:36 O2 Del Method Room Air 10/01/24 10:36 BMI result Body Mass Index 36.7 DS: Data Data Completed and Pending Pending studies at discharge: Pending at discharge 10/01/24 14:21 Surgical [PTH] Routine Discharge Plan Discharge Anticipated Discharge Date/Time: 10/02/24 10:00 Patient Disposition: Home, Self-Care Discharge Diagnosis: s/p laparoscopic sleeve gastrectomy with gastropexy Referrals: Rasheeda Noble DO [Primary Care Provider] - 1 Week Discharge Medications: Continued pantoprazole 40 mg tablet,delayed release (DR/EC) 40 mg PO DAILY Qty: 90 0RF sucralfate 100 mg/mL suspension 10 ml PO BID Qty: 600 2RF ondansetron 4 mg tablet,disintegrating 4 mg PO Q12H Qty: 20 0RF Rx Instructions: Only take one every 12 hours as needed if you have nausea Activity on Discharge: No heavy lifting Stand Alone Forms: Patient Portal Discharge page Print Language: Polish Care Plan Goals: weight loss Health Concerns: obesity Plan of Treatment: No tub baths, sex or returning to work until discussed at first post op appointment. No alcohol, tobacco or illegal drug use. Continue to use incentive spirometer hourly while awake. Walk in home for 5- 10 minutes every 2 hours during the first week. Wear abdominal binder with activity. Follow all meal plan instructions from your bariatric surgeon. Review bariatric handbook and call with any questions. Discharge Instructions 1. Please call your doctor or come back to the emergency room should any new symptoms arise. 2. Activity: abstain from alcohol,? limited stair climbing, no bending, no driving, no exercise, no illicit substances, no lifting, no sex, no tub bath, no work. 4. Diet: follow your bariatric surgeon's recommendations for advancing diet. 5. Dressing Change/Wound Care: Your incisions are covered with waterproof dressings. You can shower with these and pat dry. Do not rub over dressings or incisions. If the area is tender, you may apply an ice pack for short intervals (no more than 20 minutes on, followed by at least 20 minutes off). Do not apply heat. Do not use creams, lotions, or topical antibiotics unless instructed to do so by your surgeon. 6. Call your doctor if: - Your temperature exceeds 101.5 F - You experience excessive pain or swelling - You have an unexpected reaction to medication - You have excessive bleeding - You experience continued vomiting/nausea - Your incision begins to separate - Your incision shows signs of infection such as increased redness, swelling, excessive pain, heat, or drainage (light blood or clear fluid is normal) General instructions: No lifting greater than 10 lbs for the next 6 weeks[address] driving within 24 hours of taking narcotic pain medications. If you do not move your bowels in the next 2 days, please take milk of magnesia over the counter. Please follow the post op diet and do not advance your diet until instructed by your surgeon or until you are seen in the office in about 1 week. Please walk around your home every hour or two to prevent blood clots from forming in your legs. You do not need to wake from sleeping to walk. Please sleep in a bed or couch to prevent kinking at the hips and knees. Please take your incentive spirometer (your lung medical coordinator pesticide use) home with you and use it for the next few days to prevent pneumonias. You may shower; no hot tubs, baths or swimming pools. Please make sure you are consuming 40-60 ounces of total fluids per day. Avoid all carbonation. Please call the office with any questions or concerns such as increasing abdominal pain, fever, chills, shortness of breath, chest pain, leg pain or swelling, or redness or drainage from your incisions. Do not hesitate to contact the office with any questions at . The patient's medical history has been reviewed and they are considered low risk for post op DVT and therefore DVT prophylaxis is not considered necessary. Travel after surgery was reviewed. The patient has not disclosed any travel plans during the first 30 days after surgery and they have been advised that within the first 30 days after surgery any bus, plane, train or car travel over 2 hours in duration is contraindicated due to the possibility of developing blood clots from immobility. Any travel, needs to include periods of ambulation of 10 minutes in duration every 2 hours.? The patient was instructed to discuss any plans for travel during this period with their bariatric surgeon. Assessment: s/p laparoscopic sleeve gastrectomy with gastropexy
[2024-10-01] MEDS: fentaNYL citrate/PF 100 MCG/2 ML VIAL 50 MCG IVPUSH ×2 (15:35→16:05)
[2024-10-01 16:05] LABS: Hematocrit 39.6 % (37.0-47.0); Hemoglobin 13.3 g/dl (12.0-16.0)
[2024-10-01] MEDS: Lactated Ringers 1,000 ML 100 ML IVCONT ×2 (16:08→16:24)
[2024-10-01 16:29] LABS: Anion Gap 21 (12-20); Blood Urea Nitrogen 11 mg/dL (9-16); Calcium 8.9 mg/dL (8.4-10.2); Carbon Dioxide 14 mmol/L (22-29); Chloride 106 mmol/L (96-108); Creatinine Clr Calc Pharmacy 62.2; Estimated Glomerular Filt Rate > 60; Glucose Random 110 mg/dL (60-115); Potassium 4.4 mmol/L (3.3-5.1); Sodium 137 mmol/L (135-145)
[2024-10-01] MEDS: Acetaminophen 1,000 MG/100 ML PIGGYBACK 16.7 MG IV ×2 (17:37→23:16)
[2024-10-01] MEDS: Famotidine/PF 20 MG/2 ML VIAL IVPUSH (20:04)
[2024-10-01] MEDS: 0.9 % Sodium Chloride Flush 3 ML SYRINGE IVFLUSH (20:04)
[2024-10-01] MEDS: ondansetron HCL 4 MG/2 ML VIAL IVPUSH (20:04)
[2024-10-02] MEDS: Lactated Ringers 1,000 ML 100 ML IVCONT (01:38)
[2024-10-02] MEDS: Metoclopramide HCl 10 MG/2 ML VIAL IVPUSH (03:46)
[2024-10-02 03:47] VITALS: BP 142/66; PULSE 65; RESP 16; TEMP 36.6; O2SAT 95
[2024-10-02] MEDS: Acetaminophen 1,000 MG/100 ML PIGGYBACK 16.7 MG IV (05:11)
[2024-10-02 05:59] LABS: MANUAL DIFF FLAG NO
[2024-10-02 06:03] LABS: Basophils Percent Auto 0.1 % (0-2); Hematocrit 39.3 % (37.0-47.0); Hemoglobin 13.2 g/dl (12.0-16.0); Imm Gran Abs Auto 0.03 X10*3/uL (0.00-0.03); Imm Gran Pct Auto 0.4 % (0.0-0.4); Lymphocytes Absolute Auto 0.7 X10*3/uL (1.2-4.9); Lymphocytes Percent Auto 9.3 % (20-40); Mean Corpuscular HGB Conc 33.6 g/dl (31.0-35.0); Mean Corpuscular Hemoglobin 28.8 pg (27.0-33.0); Mean Corpuscular Volume 85.8 fL (80.0-98.0); Mean Platelet Volume 9.9 fL (9.4-12.3); Monocytes Absolute Auto 0.1 X10*3/uL (0.1-1.2); Monocytes Percent Auto 1.7 % (2-11); Neutrophils Absolute Auto 6.2 x10*3/uL (2.0-8.3); Neutrophils Percent Auto 88.5 % (45-73); Platelet Count 236 X10*3/uL (160-400); Red Blood Count 4.58 X10*6/uL (4.20-5.50); Red Cell Distribution Width 13.2 % (11.0-16.0)
[2024-10-02 06:21] LABS: Anion Gap 17 (12-20); Blood Urea Nitrogen 9 mg/dL (9-16); Calcium 9.9 mg/dL (8.4-10.2); Carbon Dioxide 18 mmol/L (22-29); Chloride 107 mmol/L (96-108); Estimated Glomerular Filt Rate 53; Glucose Random 138 mg/dL (60-115); Sodium 137 mmol/L (135-145)
[2024-10-02 07:13] VITALS: BP 110/60; PULSE 66; RESP 16; TEMP 37; O2SAT 94
--- NOTE | 2024-10-02 07:39 | HO.POSTANES ---
Post Anesthesia Evaluation Post Anesthesia Evaluation Date of Service: 10/02/24 Vital Signs: Vital Signs Temp Pulse Resp BP Pulse Ox O2 Del Method 10/02/24 07:13 98.6 F 66 16 110/60 94 Room Air 10/02/24 03:47 97.9 F 65 16 142/66 H 95 Room Air 10/01/24 23:27 97.7 F 54 18 132/63 95 Room Air 10/01/24 20:00 96.7 F L 72 18 138/71 96 Room Air Anesthesia: General Endotracheal-GETA Mental Status: Awake Pain Control: Satisfactory Nausea/Vomiting: None Hydration: Adequate Anesthesia-Related Issues: No Anes. Related Issues
--- NOTE | 2024-10-02 09:19 | PC.NURSE ---
Pt for discharge to home. Irais from clinical exercise specialist services asssited with discharge instructions. pt accepting of discharge and all questions answered
[2024-10-02 09:50] VITALS: BP 126/65; PULSE 66; RESP 16; TEMP 36.3; O2SAT 96
--- NOTE | 2024-10-02 11:08 | MHC.CM.PN ---
Patient dc'd home self care via private transport prior to CM assessment.
== END 2024-10-02 10:21 | disposition home or self-care (01) | DRG 403 ==
LOC: HO.SSSA 15:22 → HO.S3 15:59
PROVIDERS: Physician Assistant Surgical; Admitting Provider Surgery; PCP Student in an Organized Health Care Education/Training Program; Visit Provider Surgery
PROC: 0DB64Z3 Excision of Stomach, Percutaneous Endoscopic Approach, Vertical (ICD-10-PCS; CPT 43845; principal; 2024-10-01 13:10)
DX: E66.01 Morbid (severe) obesity due to excess calories (principal); E78.5 Hyperlipidemia, unspecified; G47.33 Obstructive sleep apnea (adult) (pediatric); I51.7 Cardiomegaly; K21.9 Gastro-esophageal reflux disease without esophagitis; M19.90 Unspecified osteoarthritis, unspecified site; Z68.37 Body mass index [BMI] 37.0-37.9, adult; K66.0 Peritoneal adhesions (postprocedural) (postinfection); Z79.899 Other long term (current) drug therapy
CPT/HCPCS: 36415; 80048; 80053; 80061; 83525; 84443; 85014; 85018; 85025; 86140; 86850; 86900; 86901; 88304; 88307; 88342; C9145; J0131; J0690; J1100; J1171; J1308; J2003; J2250; J2371; J2405; J2704; J2765; J2795; J3010; J7120

== ENCOUNTER → 2024-10-01 10:31 | Outpatient (BNV) | payer OTHER, SELFPAY | PROVIDERS: Admitting Provider Surgery; PCP Student in an Organized Health Care Education/Training Program; Visit Provider Surgery | DX: E66.812 Obesity, class 2 (principal); E66.01 Morbid (severe) obesity due to excess calories; Z68.37 Body mass index [BMI] 37.0-37.9, adult; E78.5 Hyperlipidemia, unspecified; K21.9 Gastro-esophageal reflux disease without esophagitis; G47.30 Sleep apnea, unspecified; M19.90 Unspecified osteoarthritis, unspecified site; K76.0 Fatty (change of) liver, not elsewhere classified; I51.7 Cardiomegaly; Q43.3 Congenital malformations of intestinal fixation; Z98.84 Bariatric surgery status | CPT/HCPCS: 43659; 43775; 99024 ==

== ENCOUNTER 2024-10-08 09:46 | Outpatient (AMB) | payer OTHER, SELFPAY ==
--- NOTE | 2024-10-08 09:53 | MHC.OFFVISWM ---
VS Expanded 10/08/24 10:09 BP 136/63 Blood Pressure Location Rt brachial Blood Pressure Position Sitting Pulse 68 Pulse Source Pulse Oximeter Temp 97.1 F Temperature Source Temporal Artery Scan Pulse Oximetry 97 Oxygen Delivery Method Room Air Height 5 ft Weight 181 lb 12.8 oz BMI 35.5 Body Fat % 45.8 Body Fat Mass 83.2 Fat Free Mass 98.6 Visceral Fat Rating 13.0 Body Water % 38.3 Body Water Mass 69.6 Muscle Mass/Score 93.4 Basal Metabolic Rate/Score 1,388 Intake Visit Reasons: OV PO LSG 10/01/2024 New Car Salesperson Required: Yes New Car Salesperson Services: New Car Salesperson Present New Car Salesperson Name: hospital cmi Allergies adhesive tape [ADHESIVE TAPE] Allergy (Intermediate, Verified 10/01/24 10:35) SKIN BLISTERS Medication List - Last Reconciled 10/08/24 by JACQUELYN Mauricio ondansetron 4 mg PO Q12H pantoprazole 40 mg PO DAILY sucralfate 10 mL PO BID HPI Comments Details: Patient is a 59-year-old female who is 7 days post sleeve gastrectomy performed on 10/01/2024. Patient was accompanied by her son today. She is supposed to be doing 3 Premier protein shakes with 1 scoop each although she states she is only doing 2, she was not happy about having only liquids. I encouraged her to communicate with Dr. Reynoso to switch to premier protein ready to drink shake which she liked much more. She has not yet moved her bowels although offers no complaints of abdominal pain or nausea. [facility] Medical History (Updated 10/03/24 @ 00:02 by Bri Avitia) BMI 37.0-37.9, adult Back pain Arthritis Pre-diabetes Sleep apnea Obesity DJD (degenerative joint disease) Hyperlipidemia GERD (gastroesophageal reflux disease) Morbid obesity Surgical History (Updated 10/01/24 @ 18:53 by Wyatt Reynoso MD) History of esophagogastroduodenoscopy (EGD) Hx of colonoscopy Hx of bladder endoscopy Hx of hysterectomy Hx of breast reduction, elective Family History Mother Asthma Father Diabetes Daughter No problems noted. Daughter No problems noted. Daughter Diabetes Son No problems noted. Son No problems noted. Social History Household Members: Family Housing: Apartment Are you a primary foster care worker to a significant other at home: No Do you presently have visiting nurse or other home services: No Alcohol intake: never Patient Tobacco Use Status: Never used Tobacco Physical Exam GI Inspection: Yes incision (Clean, dry, intact.) Assessment & Plan Assessment & Plan (1) S/P laparoscopic sleeve gastrectomy: Code(s): Z98.84 - Bariatric surgery status Category: Surgical Plan: POD 7 s/p LSG on 10/01/[address] Reynoso Weight loss prior to surgery was 19.6 pounds or 9.4 % TBWL. Original weight on 06/01/2024 was 207 pounds and op weight was 187.4 pounds. Be sure to text Dr Reynoso exactly 1 week after surgery your weight from your home scale so he can adjust your meal plan. Continue meal plan until f/u monika Contreras in 2 weeks May shower, no submersion in bath for another week Continue abdominal binder with activity and exercise for the next 2 weeks. Exercise prior to surgery was walking outside and may resume No abdominal exercises for 6 weeks post operatively Will be emailed link to post op video for review Reminded of the pace of drinking, 2 mL per minute, 1 oz/15 min.
[2024-10-08 10:09] VITALS: BP 136/63; PULSE 68; TEMP 36.2; O2SAT 97; BMI 35.5
== END 2024-10-08 10:55 | disposition home or self-care (01) ==
LOC: HO.HBS 09:47
PROVIDERS: PCP Student in an Organized Health Care Education/Training Program; Visit Provider Physician Assistant Surgical
DX: Z98.84 Bariatric surgery status (principal)
CPT/HCPCS: 99024

== ENCOUNTER → 2024-10-08 09:46 | Outpatient (BNVA) | payer OTHER, SELFPAY | PROVIDERS: PCP Student in an Organized Health Care Education/Training Program; Visit Provider Physician Assistant Surgical | DX: Z48.815 Encounter for surgical aftercare following surgery on the digestive system (principal); Z98.84 Bariatric surgery status | CPT/HCPCS: 99212 ==

== ENCOUNTER 2024-10-28 09:53 | Outpatient (AMB) | payer OTHER, SELFPAY ==
--- NOTE | 2024-10-28 09:58 | A.OFFVIS_ITS ---
VS Expanded 10/28/24 10:07 BP 139/77 Blood Pressure Location Rt brachial Blood Pressure Position Sitting Pulse 81 Pulse Source Pulse Oximeter Temp 97.1 F Temperature Source Temporal Artery Scan Pulse Oximetry 96 Oxygen Delivery Method Room Air Height 5 ft Weight 172 lb 9.6 oz BMI 33.7 Body Fat % 45.3 Body Fat Mass 78.0 Fat Free Mass 94.4 Visceral Fat Rating 13.0 Body Water % 38.7 Body Water Mass 66.8 Muscle Mass/Score 89.6 Basal Metabolic Rate/Score 1,331 Intake Visit Reasons: OV PO LSG 10/01/2024 Log Chipper Operator Required: Yes Log Chipper Operator Services: Log Chipper Operator Present Log Chipper Operator Name: hospital [facility]MI Allergies adhesive tape [ADHESIVE TAPE] Allergy (Intermediate, Verified 10/28/24 10:03) SKIN BLISTERS HPI Comments Details: This?a?59?yo female who is s/p LSG without hiatal hernia repair on?10/01/2024. Presents for 1 month post op visit. Weight today is 172.6 pounds, with a BMI of 33.7. There has been a 34.4 pound weight loss,(initial weight 207 pounds) since starting the program on 06/01/2024 reflecting a 16.6 % total body weight loss and a weight loss of 14.8 pounds since surgery (operative weight 187.4 pounds) reflecting a 7.8 % TBWL since surgery. No complaints of nausea, emesis, abdominal pain or reflux. Reports infrequent but normal bowel movements every 2- 3 days and uses stool softeners regularly. Not following the plan. She is doing 1/2 Premier protein RTD x 2 and a bar. She states that she does not have much energy and therefore is not exercising. She has been taking multivitamin with iron but this has caused nausea. She states she is sick of the flavor of the Premier protein shake. She states that she is not going to follow the meal plan. Present meal plan includes: premier protein powder 1 scoop 8-10, 11-1, 2-4 fit crunch bar 5-8 40 oz water ? Exercise routine includes: no exercise PFSH Medical History (Updated 10/16/24 @ 00:01 by Background Daemon) BMI 37.0-37.9, adult Back pain Arthritis Pre-diabetes Sleep apnea Obesity DJD (degenerative joint disease) Hyperlipidemia GERD (gastroesophageal reflux disease) Morbid obesity Surgical History History of esophagogastroduodenoscopy (EGD) Hx of colonoscopy Hx of bladder endoscopy Hx of hysterectomy Hx of breast reduction, elective Family History Mother Asthma Father Diabetes Daughter No problems noted. Daughter No problems noted. Daughter Diabetes Son No problems noted. Son No problems noted. Social History Household Members: Family Housing: Apartment Are you a primary wound care nurse to a significant other at home: No Do you presently have visiting nurse or other home services: No Alcohol intake: never Patient Tobacco Use Status: Never used Tobacco Physical Exam GI Inspection: Yes incision (Healing well) Assessment & Plan Assessment & Plan (1) S/P laparoscopic sleeve gastrectomy: Code(s): Z98.84 - Bariatric surgery status Category: Surgical Plan: Discussed multiple issues with the patient Discussed that she is not feeling very well because she is not following the meal plan and not getting enough protein. Encouraged her to follow the meal plan exactly, utilizing water instead of the almond milk if she wishes. She certainly may change Flavors of the shake product. She additionally was encouraged to drink 40-50 oz of fluids in addition to her shakes. She was educated about the hazards of not following the meal plan including but not limited to abdominal pain, nausea, vomiting, disruption of the stomach. She was encouraged to follow the meal plan exactly as given to her by Dr. Reynoso. Encouraged to continue to text weekly with her weight is and if any problems or concerns. Encouraged her to get bariatric fusion multivitamin and to take this at night. Given paperwork highlighting the exact vitamin to get. We will have her return to the office in approximately 1 month.
[2024-10-28 10:07] VITALS: BP 139/77; PULSE 81; TEMP 36.2; O2SAT 96; BMI 33.7
== END 2024-10-28 10:57 | disposition home or self-care (01) ==
LOC: HO.HBS 09:54
PROVIDERS: PCP Student in an Organized Health Care Education/Training Program; Visit Provider Physician Assistant Surgical
DX: Z98.84 Bariatric surgery status (principal)
CPT/HCPCS: 99024

== ENCOUNTER → 2024-10-28 09:53 | Outpatient (BNVA) | payer OTHER, SELFPAY | PROVIDERS: PCP Student in an Organized Health Care Education/Training Program; Visit Provider Physician Assistant Surgical | DX: E66.9 Obesity, unspecified (principal); Z98.84 Bariatric surgery status; Z68.33 Body mass index [BMI] 33.0-33.9, adult | CPT/HCPCS: 99212 ==